=== PATIENT | female | born 1950 | race Caucasian/White ===

== ENCOUNTER 2022-03-09 08:58 | Outpatient (REF) | payer OTHER, SELFPAY ==
[2022-03-09 09:31] LABS: MANUAL DIFF FLAG NO
[2022-03-09 10:00] LABS: Basophils Percent Auto 0.5 % (0-2); Hematocrit 36.4 % (37.0-47.0); Hemoglobin 12.5 g/dl (12.0-16.0); Imm Gran Abs Auto 0.03 X10*3/uL (0.00-0.03); Imm Gran Pct Auto 0.3 % (0.0-0.4); Lymphocytes Absolute Auto 3.3 X10*3/uL (1.2-4.9); Lymphocytes Percent Auto 36.9 % (20-40); Mean Corpuscular HGB Conc 34.3 g/dl (31.0-35.0); Mean Corpuscular Hemoglobin 29.1 pg (27.0-33.0); Mean Corpuscular Volume 84.8 fL (80.0-98.0); Mean Platelet Volume 9.1 fL (9.4-12.3); Monocytes Absolute Auto 0.7 X10*3/uL (0.1-1.2); Monocytes Percent Auto 8.1 % (2-11); Neutrophils Absolute Auto 4.8 x10*3/uL (2.0-8.3); Neutrophils Percent Auto 54.2 % (45-73); Platelet Count 278 X10*3/uL (160-400); Red Blood Count 4.29 X10*6/uL (4.20-5.50); Red Cell Distribution Width 12.8 % (11.0-16.0); White Blood Count 8.9 X10*3/uL (4.8-10.8)
[2022-03-09 10:23] LABS: Alanine Aminotransferase 23 U/L (0-31); Albumin Level 4.3 g/dL (3.5-5.0); Alkaline Phosphatase 81 U/L (39-117); Anion Gap 18 (12-20); Aspartate Amino Transferase 19 U/L (5-31); Bilirubin Total 0.5 mg/dL (0.0-1.0); Blood Urea Nitrogen 19 mg/dL (9-16); Calcium 9.9 mg/dL (8.4-10.2); Carbon Dioxide 24 mmol/L (22-29); Chloride 103 mmol/L (96-108); Cholesterol 164 mg/dL; Estimated Glomerular Filt Rate 47; Glucose Random 196 mg/dL (60-115); HDL Cholesterol 32 mg/dL; LDL Cholesterol Calculated 64 mg/dl; Potassium 4.6 mmol/L (3.3-5.1); Sodium 140 mmol/L (135-145); Triglycerides 342 mg/dL
[2022-03-09 10:33] LABS: Estimated Average Glucose 177 mg/dL; Hemoglobin A1c % 7.8 %
[2022-03-09 10:45] LABS: Thyroid Stimulating Hormone 0.66 uIU/mL (0.32-4.0)
[2022-03-09 11:26] LABS: Creatinine Urine 114.61 mg/dL; Microalbum/Creatinine Ratio Ur 39.2 ug/mg cr
== END 2022-03-09 08:59 | disposition home or self-care (01) ==
LOC: HO.LAB 08:58
PROVIDERS: PCP Internal Medicine; Visit Provider Internal Medicine
DX: Z00.01 Encounter for general adult medical examination with abnormal findings (principal); E11.65 Type 2 diabetes mellitus with hyperglycemia; E78.00 Pure hypercholesterolemia, unspecified; I10 Essential (primary) hypertension
CPT/HCPCS: 36415; 80053; 80061; 82043; 83036; 84443; 85025

== ENCOUNTER 2022-06-12 09:40 | Outpatient (REF) | payer OTHER, SELFPAY ==
[2022-06-12 12:36] LABS: Alanine Aminotransferase 27 U/L (0-31); Albumin Level 4.5 g/dL (3.5-5.0); Alkaline Phosphatase 66 U/L (39-117); Anion Gap 13 (12-20); Aspartate Amino Transferase 22 U/L (5-31); Bilirubin Total 0.6 mg/dL (0.0-1.0); Blood Urea Nitrogen 21 mg/dL (9-16); Calcium 10.1 mg/dL (8.4-10.2); Carbon Dioxide 24 mmol/L (22-29); Chloride 108 mmol/L (96-108); Estimated Glomerular Filt Rate 46; Glucose Random 149 mg/dL (60-115); Potassium 4.4 mmol/L (3.3-5.1); Sodium 141 mmol/L (135-145); Total Protein 6.8 g/dL (6.5-8.0)
[2022-06-13 05:24] LABS: Estimated Average Glucose 151 mg/dL; Hemoglobin A1C 169.2317 umol/L; Hemoglobin A1c % 6.9 %
== END 2022-06-12 09:41 | disposition home or self-care (01) ==
LOC: HO.LAB 09:40
PROVIDERS: PCP Internal Medicine; Visit Provider Internal Medicine
DX: I12.9 Hypertensive chronic kidney disease with stage 1 through stage 4 chronic kidney disease, or unspecified chronic kidney disease (principal); E11.22 Type 2 diabetes mellitus with diabetic chronic kidney disease; N18.9 Chronic kidney disease, unspecified; E11.65 Type 2 diabetes mellitus with hyperglycemia; E78.2 Mixed hyperlipidemia; R80.8 Other proteinuria
CPT/HCPCS: 36415; 80053; 83036

== ENCOUNTER 2022-09-10 10:15 | Outpatient (REF) | payer MEDICARE, SELFPAY ==
[2022-09-10 11:13] LABS: Estimated Average Glucose 154 mg/dL
[2022-09-10 11:44] LABS: Creatinine Urine 77.11 mg/dL
[2022-09-10 11:52] LABS: Alanine Aminotransferase 22 U/L (0-31); Albumin Level 4.3 g/dL (3.5-5.0); Alkaline Phosphatase 70 U/L (39-117); Anion Gap 13 (12-20); Aspartate Amino Transferase 21 U/L (5-31); Bilirubin Total 0.7 mg/dL (0.0-1.0); Blood Urea Nitrogen 20 mg/dL (9-16); Calcium 9.7 mg/dL (8.4-10.2); Carbon Dioxide 25 mmol/L (22-29); Chloride 107 mmol/L (96-108); Cholesterol 165 mg/dL; Estimated Glomerular Filt Rate > 60; Glucose Random 142 mg/dL (60-115); HDL Cholesterol 33 mg/dL; LDL Cholesterol Calculated 89 mg/dl; Potassium 4.7 mmol/L (3.3-5.1); Sodium 140 mmol/L (135-145); Total Protein 6.7 g/dL (6.5-8.0); Triglycerides 219 mg/dL
== END 2022-09-10 10:16 | disposition home or self-care (01) ==
LOC: HO.LAB 10:15
PROVIDERS: PCP Internal Medicine; Visit Provider Internal Medicine
DX: E11.9 Type 2 diabetes mellitus without complications (principal); E78.2 Mixed hyperlipidemia; I10 Essential (primary) hypertension; R80.8 Other proteinuria
CPT/HCPCS: 36415; 80053; 80061; 82043; 83036

== ENCOUNTER 2022-12-17 08:33 | Outpatient (REF) | payer MEDICARE, SELFPAY ==
[2022-12-17 09:12] LABS: Estimated Average Glucose 134 mg/dL; Hemoglobin A1c % 6.3 %
[2022-12-17 09:27] LABS: Alanine Aminotransferase 20 U/L (0-31); Albumin Level 4.2 g/dL (3.5-5.0); Alkaline Phosphatase 71 U/L (39-117); Anion Gap 15 (12-20); Aspartate Amino Transferase 16 U/L (5-31); Bilirubin Total 0.6 mg/dL (0.0-1.0); Blood Urea Nitrogen 26 mg/dL (9-16); Carbon Dioxide 25 mmol/L (22-29); Chloride 105 mmol/L (96-108); Cholesterol 166 mg/dL; Estimated Glomerular Filt Rate 45; Glucose Fasting 135 mg/dL (60-99); HDL Cholesterol 28 mg/dL; LDL Cholesterol Calculated 74 mg/dl; Potassium 4.6 mmol/L (3.3-5.1); Sodium 140 mmol/L (135-145); Total Protein 6.9 g/dL (6.5-8.0); Triglycerides 322 mg/dL
== END 2022-12-17 08:34 | disposition home or self-care (01) ==
LOC: HO.LAB 08:33
PROVIDERS: PCP Internal Medicine; Visit Provider Internal Medicine
DX: E11.9 Type 2 diabetes mellitus without complications (principal); E78.00 Pure hypercholesterolemia, unspecified; I10 Essential (primary) hypertension; Z68.37 Body mass index [BMI] 37.0-37.9, adult
CPT/HCPCS: 36415; 80053; 80061; 83036

== ENCOUNTER 2023-03-18 09:30 | Outpatient (REF) | payer MEDICARE, SELFPAY ==
[2023-03-18 10:39] LABS: Estimated Average Glucose 154 mg/dL
[2023-03-18 11:10] LABS: Alanine Aminotransferase 18 U/L (0-31); Albumin Level 4.3 g/dL (3.5-5.0); Alkaline Phosphatase 73 U/L (39-117); Anion Gap 13 (12-20); Aspartate Amino Transferase 18 U/L (5-31); Bilirubin Total 0.4 mg/dL (0.0-1.0); Blood Urea Nitrogen 26 mg/dL (9-16); Calcium 10.7 mg/dL (8.4-10.2); Carbon Dioxide 26 mmol/L (22-29); Chloride 106 mmol/L (96-108); Estimated Glomerular Filt Rate 47; Glucose Random 139 mg/dL (60-115); Potassium 4.4 mmol/L (3.3-5.1); Sodium 141 mmol/L (135-145); Total Protein 7.3 g/dL (6.5-8.0)
== END 2023-03-18 09:31 | disposition home or self-care (01) ==
LOC: HO.LAB 09:30
PROVIDERS: PCP Internal Medicine; Visit Provider Internal Medicine
DX: E11.9 Type 2 diabetes mellitus without complications (principal); E78.00 Pure hypercholesterolemia, unspecified; I10 Essential (primary) hypertension; R21 Rash and other nonspecific skin eruption
CPT/HCPCS: 36415; 80053; 83036

== ENCOUNTER 2023-06-17 09:38 | Outpatient (REF) | payer MEDICARE, SELFPAY ==
[2023-06-17 10:42] LABS: Alanine Aminotransferase 21 U/L (0-31); Albumin Level 4.3 g/dL (3.5-5.0); Alkaline Phosphatase 82 U/L (39-117); Anion Gap 15 (12-20); Aspartate Amino Transferase 16 U/L (5-31); Bilirubin Total 0.3 mg/dL (0.0-1.0); Blood Urea Nitrogen 33 mg/dL (9-16); Calcium 9.4 mg/dL (8.4-10.2); Carbon Dioxide 24 mmol/L (22-29); Chloride 106 mmol/L (96-108); Cholesterol 162 mg/dL (<200); Estimated Glomerular Filt Rate 43; Glucose Random 148 mg/dL (60-115); HDL Cholesterol 28 mg/dL (>40); LDL Cholesterol Calculated 79 mg/dL (<100); Potassium 3.8 mmol/L (3.3-5.1); Sodium 141 mmol/L (135-145); Total Protein 7.4 g/dL (6.5-8.0); Triglycerides 275 mg/dL (<150)
[2023-06-17 11:02] LABS: Vitamin D 25-OH Total 51.7 ng/mL (>30)
[2023-06-17 11:09] LABS: Estimated Average Glucose 163 mg/dL; Hemoglobin A1c % 7.3 % (<6.0)
[2023-06-17 11:56] LABS: Vitamin B12 < 148 pg/mL (200-900)
[2023-06-17 12:42] LABS: Microalbum/Creatinine Ratio Ur 46.4 ug/mg cr (<30)
== END 2023-06-17 09:39 | disposition home or self-care (01) ==
LOC: HO.LAB 09:38
PROVIDERS: PCP Internal Medicine; Visit Provider Internal Medicine
DX: E11.9 Type 2 diabetes mellitus without complications (principal); E78.00 Pure hypercholesterolemia, unspecified; I10 Essential (primary) hypertension; M54.50 Low back pain, unspecified
CPT/HCPCS: 36415; 80053; 80061; 82043; 82306; 82570; 82607; 83036

== ENCOUNTER 2023-09-17 08:42 | Outpatient (REF) | payer MEDICARE, SELFPAY ==
[2023-09-17 09:32] LABS: Estimated Average Glucose 163 mg/dL; Hemoglobin A1c % 7.3 % (<6.0)
[2023-09-17 09:55] LABS: Alanine Aminotransferase 21 U/L (0-31); Albumin Level 4.3 g/dL (3.5-5.0); Alkaline Phosphatase 75 U/L (39-117); Anion Gap 11 (12-20); Aspartate Amino Transferase 18 U/L (5-31); Bilirubin Total 0.4 mg/dL (0.0-1.0); Blood Urea Nitrogen 28 mg/dL (9-16); Calcium 9.8 mg/dL (8.4-10.2); Carbon Dioxide 26 mmol/L (22-29); Chloride 109 mmol/L (96-108); Cholesterol 132 mg/dL (<200); Estimated Glomerular Filt Rate 49; Glucose Random 187 mg/dL (60-115); HDL Cholesterol 30 mg/dL (>40); LDL Cholesterol Calculated 48 mg/dL (<100); Potassium 4.4 mmol/L (3.3-5.1); Sodium 142 mmol/L (135-145); Total Protein 7.3 g/dL (6.5-8.0); Triglycerides 273 mg/dL (<150)
== END 2023-09-17 08:43 | disposition home or self-care (01) ==
LOC: HO.LAB 08:42
PROVIDERS: PCP Internal Medicine; Visit Provider Internal Medicine
DX: D51.9 Vitamin B12 deficiency anemia, unspecified (principal); E11.65 Type 2 diabetes mellitus with hyperglycemia; E78.00 Pure hypercholesterolemia, unspecified; I10 Essential (primary) hypertension
CPT/HCPCS: 36415; 80053; 80061; 83036

== ENCOUNTER 2023-12-17 08:38 | Outpatient (REF) | payer MEDICARE, SELFPAY ==
[2023-12-17 09:34] LABS: Estimated Average Glucose 160 mg/dL; Hemoglobin A1c % 7.2 % (<6.0)
[2023-12-17 10:03] LABS: Alanine Aminotransferase 20 U/L (0-31); Albumin Level 4.3 g/dL (3.5-5.0); Alkaline Phosphatase 71 U/L (39-117); Anion Gap 12 (12-20); Aspartate Amino Transferase 18 U/L (5-31); Bilirubin Total 0.4 mg/dL (0.0-1.0); Blood Urea Nitrogen 28 mg/dL (9-16); Calcium 10.3 mg/dL (8.4-10.2); Carbon Dioxide 25 mmol/L (22-29); Chloride 107 mmol/L (96-108); Estimated Glomerular Filt Rate 41; Glucose Random 144 mg/dL (60-115); Sodium 140 mmol/L (135-145); Total Protein 7.1 g/dL (6.5-8.0)
== END 2023-12-17 08:39 | disposition home or self-care (01) ==
LOC: HO.LAB 08:38
PROVIDERS: PCP Internal Medicine; Visit Provider Internal Medicine
DX: E11.65 Type 2 diabetes mellitus with hyperglycemia (principal); E78.00 Pure hypercholesterolemia, unspecified; I10 Essential (primary) hypertension; Z68.36 Body mass index [BMI] 36.0-36.9, adult
CPT/HCPCS: 36415; 80053; 83036

== ENCOUNTER 2024-03-17 08:01 | Outpatient (REF) | payer MEDICARE, SELFPAY ==
[2024-03-17 08:54] LABS: Estimated Average Glucose 143 mg/dL; Hemoglobin A1c % 6.6 % (<6.0)
[2024-03-17 09:28] LABS: Parathyroid Hormone Intact 82.4 pg/mL (8.7-77.1)
[2024-03-17 09:31] LABS: Alanine Aminotransferase 20 U/L (0-31); Albumin Level 4.3 g/dL (3.5-5.0); Alkaline Phosphatase 76 U/L (39-117); Anion Gap 13 (12-20); Aspartate Amino Transferase 15 U/L (5-31); Bilirubin Total 0.3 mg/dL (0.0-1.0); Blood Urea Nitrogen 35 mg/dL (9-16); Calcium 9.7 mg/dL (8.4-10.2); Carbon Dioxide 23 mmol/L (22-29); Chloride 107 mmol/L (96-108); Cholesterol 135 mg/dL (<200); Estimated Glomerular Filt Rate 45; Glucose Random 158 mg/dL (60-115); HDL Cholesterol 30 mg/dL (>40); LDL Cholesterol Calculated 38 mg/dL (<100); Phosphorus 3.4 mg/dL (2.7-4.5); Potassium 4.4 mmol/L (3.3-5.1); Sodium 139 mmol/L (135-145); Total Protein 7.1 g/dL (6.5-8.0); Triglycerides 337 mg/dL (<150)
[2024-03-17 10:26] LABS: Creatinine Urine 51.75 mg/dL; Microalbum/Creatinine Ratio Ur 23.1 ug/mg cr (<30)
== END 2024-03-17 08:02 | disposition home or self-care (01) ==
LOC: HO.LAB 08:01
PROVIDERS: PCP Internal Medicine; Visit Provider Internal Medicine
DX: E11.65 Type 2 diabetes mellitus with hyperglycemia (principal); E78.00 Pure hypercholesterolemia, unspecified; E83.52 Hypercalcemia; I12.9 Hypertensive chronic kidney disease with stage 1 through stage 4 chronic kidney disease, or unspecified chronic kidney disease
CPT/HCPCS: 36415; 80053; 80061; 82043; 82306; 82570; 83036; 83970; 84100

== ENCOUNTER 2024-06-16 08:44 | Outpatient (REF) | payer MEDICARE, SELFPAY ==
[2024-06-16 10:10] LABS: Estimated Average Glucose 171 mg/dL; Hemoglobin A1c % 7.6 % (<6.0); Total Hemoglobin (HGBA1C) 3234.2182 umol/L
[2024-06-16 11:15] LABS: Alanine Aminotransferase 19 U/L (0-31); Albumin Level 4.3 g/dL (3.5-5.0); Alkaline Phosphatase 68 U/L (39-117); Anion Gap 16 (12-20); Aspartate Amino Transferase 20 U/L (5-31); Bilirubin Total 0.3 mg/dL (0.0-1.0); Blood Urea Nitrogen 27 mg/dL (9-16); Calcium 9.5 mg/dL (8.4-10.2); Carbon Dioxide 24 mmol/L (22-29); Chloride 107 mmol/L (96-108); Estimated Glomerular Filt Rate 42; Glucose Random 163 mg/dL (60-115); Potassium 4.1 mmol/L (3.3-5.1); Sodium 143 mmol/L (135-145); Total Protein 7.3 g/dL (6.5-8.0)
[2024-06-18 13:13] LABS: HCV RNA PCR Qn <1.18 NOT DETECTED Log IU/mL (NOT DETECTED); HCV RNA PCR Qn <15 NOT DETECTED IU/mL (NOT DETECTED)
== END 2024-06-16 08:45 | disposition home or self-care (01) ==
LOC: HO.LAB 08:44
PROVIDERS: PCP Internal Medicine; Visit Provider Internal Medicine
DX: I12.9 Hypertensive chronic kidney disease with stage 1 through stage 4 chronic kidney disease, or unspecified chronic kidney disease (principal); E11.22 Type 2 diabetes mellitus with diabetic chronic kidney disease; E78.00 Pure hypercholesterolemia, unspecified; Z68.36 Body mass index [BMI] 36.0-36.9, adult; Z18.9 Retained foreign body fragments, unspecified material
CPT/HCPCS: 36415; 80053; 83036; 87522

== ENCOUNTER 2024-09-14 09:09 | Outpatient (REF) | payer MEDICARE, SELFPAY ==
--- OUTSIDE RECORDS SUMMARY | 2024-09-14 09:43 | XMS_ITS ---
[facility] Organization [facility] Address [address] [facility] [place] [address] Care Team Providers Care Pool Table Operator Name Role Phone Fely Antonio Primary Care Provider UnavailBarbara Huerta Unavailable [phone] Allergies No Known Allergies REASON FOR VISIT At Risk Footcare Medications Medication SIG (Take, Route, Frequency, Duration) Notes Start Date End Date Status metFORMIN HCl 500 MG 1 tablet with a efraín l Orally Once a day for 30 day(s) Active Extra Depth Diabetic Shoes with 3 Pair Custom heat-molded multi-density innersoles for 1 year Dx: 02/13/2023 A ctive Atorvastatin Calcium 40 MG 1 tablet Orally Once a day for 30 day(s) Not-Taking Extra Depth Diabetic Shoes with 3 Pair Custom heat-molded multi-density innersoles for 1 year Dx: 04/06/2024 A ctive Voltaren 1 % as directed Externally 04/06/2024 Active Trulicity 1.5 MG/0.5ML as directed Subcutaneous Active Metoprolol Succinate 100 MG 1 capsule Orally Once a day for 30 day(s) Active Losartan Potassium 25 MG 1 tablet Orally Once a day for 30 day(s) Active glipiZIDE ER 10 MG 1 tablet with breakf ast Orally Once a day for 30 day(s) Active amLODIPine Besylate 5 MG 1 tablet Orally Once a day for 30 day(s) Active Rosuvastatin Calcium 20 MG 1 tablet Orally Once a day Active Jardiance 25 MG 1 tablet Orally Once a day for 30 day(s) Active Gabapentin & Diet Manage Prod Active Social History Tobacco Use: Social History Observation Description Date Details (start date - stop date) Former Smoker NA - NA Tobacco Use/Smoking Question Answer Notes Are you a: former smoker Additional Findings: Tobacco Non-User Current no n-smoker Alcohol Screen Question Answer Notes Did you have a drink contain ing alcohol in the past year? Yes How often did you have a dri nk containing alcohol in the past year? Monthly or less (1 point) Points 1 Interpretation Negative Tobacco use other than smoking: Question Answer Notes Are you an other tobacco user? No Problems Problem Type SNOMED Code ICD Code Onset Dates Problem Status W/U Status Risk Notes Problem Polyneuropathy due to diabetes mellitus type I (276165496) Type 1 diabetes mellitus with diabetic polyneuropathy (E10.42) Active confirmed Vital Signs Height 5ft 3in in 07/06/2024 Weight 206 lbs 07/06/2024 BMI 36.49 kg/m2 07/06/2024 Blood pressure systolic 129 mm Hg 07/06/20 24 Blood pressure diastolic 78 mm Hg 024 Procedures Procedure Date Ordered Date Performed Result Body Sit e 33199-TEIQUWF NAIL, 6 OR MORE 07/06/2024 N/A 97906-IZCX SKIN LESIONS, OVER 4 07/06/2024 N/A Encounters Encounter Location Date Provider Diagnosis [facility] [place] [address] [place] [address] 07/06/2024 Barbara Amezquita Type 2 diabetes mellitus with diabetic polyneuropathy E11.42 and Tinea unguium B35.1 Assessments Encounter Date Diagnosis (ICD Code) Assessment Notes Treatment Notes Treatment Clinical Notes Section Notes 07/06/2024 Type 2 diabetes mellitus with diabetic polyneuropathy (ICD-10 - E11.42) 07/06/2024 Tinea unguium (ICD-10 - B35.1) Plan Of Treatment Pending Test Test Name Order Date 80654-QLMKVKF NAIL, 6 OR MORE 07/06/2024 65795-NQTW SKIN LESIONS, OVER 4 07/06/20 24 Next Appt Details Follow Up: 3 Months, Reason: Provider Name:Barbara Burtjose manuel jimmie, 11/05/2024 11:00:00 AM, [address] [place], [address], Procedure Notes * Category Sub-Category Detail Notes Debride Nail 6-10 Nail debridement Due to the cl inical pathology outlined in the exam findings, performance of this nail treatment is medically necessary as its management by an unskilled/untrained nonprofessional would put this patients foot and overall health at risk. Therefore, debridement to affected nail(s), as described in exam ( T1, T2, T3, T4, T5, T6, T7, T8, T9, ), was performed exclusively by the physician of record to reduce/remove overall nail length, girth, thickness, subungual debris, and necrotic tissue, by manual and/or electrical means through the use of a nail nipper and/or dremel-type hob grinder, to a more viable healthy nail plate or bed tissue 6-10 nails in total. Silver nitrate was used for any petechial bleeding as necessary. Definitive antifungal treatment options, both pharmaceutical and surgical, have been reviewed and discussed with the patient. The patient solely prefers the use of intermittent/as needed professional debridement services for their nail condition and understands the need for additional periodic treatments to maintain effectiveness in symptomatic relief - 20906 Keratoma Treatment Parring or Cutting o f Benign Hyperkeratotic Lesion(s) (-57) More than 4 Lesions - Due to the at risk nature of the patients medical condition as documented in the exam findings, performance of this keratoderma treatment is medically necessary as its management by an unskilled/untrained nonprofessional would put this patients foot and overall health at risk. Therefore, the benign hyperkeratotic lesions, ( 5 ) in total, locations as stated and described in the exam ( Medial plantar, IPJ, TA, SUB MTH (s), 1, B/L, Heel(s), B/L, ), were pared, and/or cut utilizing a sterile 15 blade, tissue nippers, and/or power dremel instrumentation by the physician of record - [id number] Progress Notes * Jannette CARRILLODOB: [birth year] (74 yo F)Acc No.[id number]:07/06/2024 Progress Note Patient:?Bartolo CARRILLOidi Provider:?Barbara Amezquita DPM :1950???Age:74 Y???Sex:Female D ate:07/06/2024 Address:[address], [place] , [id number] Pcp:Fely Antonio Subjective: * Chief Complaints: * ???At Risk Footcare * HPI: ???At Risk footcare:?Pt States Last PCP Visit:?Date?06/25/2024 * ROS:?General/Constitutional:?Nausea?denies.?Vomiting?denies.?Hunger Thirst?denies.?Loss appetite?denies.?Chills?denies.?Fatigue?denies.?Fever?denies.?Night Sweats?denies.?Unexplained weight loss?denies.?Unexplained weight gain?denies.?HEENTM:?Dentures?denies.?Dizziness?denies.?Glasses/contacts?denies.?Retinopathy?den ies.?Blurred/double vision?denies.?TMJ?denies.?Discharge/drainage?denies.?Implants?denies.?Sore throat?denies.?Dental implants?denies.?Hard of hearing ?denies.?Difficulty chewing/swallowing/speaking?denies.?Nose bleeds?denies.?Sore mouth?denies.?Respiratory:?On O xygen?denies.?Pneumonia/pleurisy?denies.?Bronchitis?denies.?Emphysema?denies.?Co ughing?denies.?Cough blood?denies.?Shortness of breath?denies.?Wheezing?denies.?Cardiovascular:?Pacemaker?denies.?MVP?denies.?WPW?denies.?CHF?denies.?Heart attack?denies.?Septal defect?denies.?Rapid beat?denies.?Chest pain ?denies.?Atrial Fib.?denies.?Murmur/Palpitations?denies.?Gastrointestinal:?Hemorrhoids?denies.?Stomach/Abdominal pain?denies.?Dark blood stool?denies.?Irritable bowel ?denies.?Constipation?denies.?Diarrhea?denies.?Hematology:?Swelling?denies.?Clots?denies.?Varicose Veins?denies.?Bruising?denies.?Bleeding problem?denies.?Genitourinary:?Blood urine?denies.?Frequent/Painfu/urination/bladder control?denies.?Kidney stones?denies.?Infection (UTI)?denies.?Nephropathy?denies.?sex trans dis (STD)?denies.?Prostate?denies.?Musculoskeletal:?Hammertoes?denies.?Bunions?denies.?Back Pain?denies.?Muscle Cramps/ Resting?denies.?Muscle cramps / walking?denies.?Generalized aches and pains?denies.?Weakness?denies.?Integ.:?Bryant?denies.?Scars?denies.?Corns/calluses?denies.?Ingrown nails?denies.?Painful nails?denies.?Open Sores?denies.?Rashes?denies.?Neurologic:?Difficulty sleeping?denies.?Brain disorder?denies.?Numbness?denies.?Balance t rouble?denies.?Confusion?denies.?Fainting/blackouts?denies.?Tingling?denies.?James mors?denies.? * Medical History:? * Surgical History:?tonsillect sandra 1967jaw surgery 1969appendectomy 1971carpal tunnel surgery 2004 * Hospitalization/Major Diagno stic Procedure:?Denies Past Hospitalization * Family History:?Mother: dece ased.?Father: , cancer, poor circulation, diagnosed with Other malignant neoplasm of unspecified site, Other specified conditions influencing health status.?Siblings: heart attack,stroke, diagnosed with Diabetic - NIDDM, Unspecified essential hypertension, Unspecified heart disease.?Spouse: Cancer, diagnosed with Other malignant neoplasm of unspecified site.? * Social History:?Tobacco Use:?Tobacco Use/Smoking?Are you a:?former smoker ?Additional Findings: Tobacco Non-User?Current non-smoker ?Tobacco use other than smoking?Are you an other tobacco user??No ???Drugs/Alcohol:?Drugs?Have you used drugs other than those for medical reasons in the past 12 months??No ?Alcohol Screen?Did you have a drink containing alcohol in the past year??Yes ?How often did you have a drink containing alcohol in the past year??Monthly or less (1 point) ?Points?1 ?Interpretation?Negative ???Miscellaneous:?Caffeine: yes, frequency: 1-2 cups per day. ?Children: yes, 2. ?Exercise: yes, walking. ?Marital status: . ?Occupation: Retired. * Medications:?TakingGabapenti n & Diet Manage Prod Rosuvastatin Calcium 20 MG Tablet 1 tablet Orally Once a day Jardiance 25 MG Tablet 1 tablet Orally Once a day Trulicity 1.5 MG/0.5ML Solution Pen-injector as directed Subcutaneous Metoprolol Succinate 100 MG Capsule ER 24 Hour Sprinkle 1 capsule Orally Once a day Losartan Potassium 25 MG Tablet 1 tablet Orally Once a day glipiZIDE ER 10 MG Tablet Extended Release 24 Hour 1 tablet with breakfast Orally Once a day amLODIPine Besylate 5 MG Tablet 1 tablet Orally Once a day metFORMIN HCl 500 MG Tablet 1 tablet with a meal Orally Once a day Extra Depth Diabetic Shoes with 3 Pair Custom heat-molded multi-density innersoles for 1 year Dx: Extra Depth Diabetic Shoes with 3 Pair Custom heat-molded multi-density innersoles for 1 year Dx: Voltaren 1 % Gel as directed Externally Taking Gabapentin & Diet Manage Prod Taking Rosuvastatin Calcium 20 MG Tablet 1 tablet Orally Once a day Taking Jardiance 25 MG Tablet 1 tablet Orally Once a day Taking Trulicity 1.5 MG/0.5ML Solution Pen-injector as directed Subcutaneous Taking Metoprolol Succinate 100 MG Capsule ER 24 Hour Sprinkle 1 capsule Orally Once a day Taking Losartan Potassium 25 MG Tablet 1 tablet Orally Once a day Taking glipiZIDE ER 10 MG Tablet Extended Release 24 Hour 1 tablet with breakfast Orally Once a day Taking amLODIPine Besylate 5 MG Tablet 1 tablet Orally Once a day Taking metFORMIN HCl 500 MG Tablet 1 tablet with a meal Orally Once a day Taking Extra Depth Diabetic Shoes with 3 Pair Custom heat-molded multi-density innersoles for 1 year Dx: Taking Extra Depth Diabetic Shoes with 3 Pair Custom heat-molded multi-density innersoles for 1 year Dx: Taking Voltaren 1 % Gel as directed Externally Not-Taking/PRNAtorvastatin Calcium 40 MG Tablet 1 tablet Orally Once a day Medication List reviewed and reconciled with the patientNot-Taking/PRN Atorvastatin Calcium 40 MG Tablet 1 tablet Orally Once a day Medication List reviewed and reconciled with the patient * Allergies:?N.K.D.A.yes[Aller gies Verified] Objective: * Vitals:?Ht: 5ft 3in, Wt:206, BMI:36.49, Shoe size: 8, BP:129/78mm Hg, BS: 136, Ht-cm: 160.02 cm, Wt-k.44 kg. * ???Past Orders: ???Lab:HEMOGLOBIN A1C (GLYCO HEMOGLOBIN) (Order Date - 06/07/2024) (Collection Date & Time - 06/07/2024 02:01 PM) ? Value Reference Range ?TOTAL HEMOGLOBIN (HGBA1C) 7.3 * Examination: ???Ophthalmology Referral: ?DIABETES EYE EXAM?Procedure Performed:?Yes ?Date of Exam Performed?04/07/2024 ?Findings of Diabetic Eye Exam:?no retinopathy?Neurological: ?SENSORY:? Neurological exam demonstrates, reduced light touch sensation, reduced sharp/dull pin prick discrimination , B/L, 5.07 monofilament test performed at plantar aspects of 5 varied sites per foot shows sensation, reduced , B/L.?Nails: ?NAILS are:?Elongated, overgrown, dystrophic, lytic, greater than 3mm thick, discolored and friable with crumbly malodorous subungual debris, with dull to no pain on palpation due to neuropathy, T1, T2, T3, T4, T5, T6, T7, T8, T9.?Dermatologic: ?SKIN FINDINGS:?Skin exam reveals Keratotic lesion(s) located at?Medial plantar, IPJ, TA, T5, SUB MTH (s), 1, B/L, Heel(s), B/L,?.?Vascular: ?DP PULSES (B):?1/4, B/L.?PT PULSES (B):? 0/4, B/L.?CAPILLARY FILL TIME:?3 secs. per digit, B/L.?TROPHIC CONDITION-TEXTURE/ELASTICITY/TURGOR/HAIR GROWTH (B):?normal, B/L.?TEMPERTURE GRADIENT (C):?warm to cool, proximal to distal, B/L.?PIGMENTATION:?normal, B/L.?EDEMA (C):?no edema.?TELANGECTASIA:?absent.?VARICOSITIES:?absent.?Orthopedic: ?MUSCLE STRENGTH:?5/5 all groups in a symmetrical fashion, B/L.?General Examination: ?GENERAL APPEARANCE:?Reveals a pleasant, alert, well nourished, well- developed, well hydrated individual, who demonstrates proper attention to hygiene/body habitus, and is in no acute distress, Pt serves as own historian for office visit today.?ORIENTED:?person, place, and time.? Assessment: * Assessment: 1.?Type 2 diabetes mellitus with diabetic polyneuropathy - E11.42 (Primary)???2.?Tinea unguium - B35.1??? Plan: * Treatment: * Procedures:?Debride Nail 6-10:?Nail debridement?Due to the clinical pathology outlined in the exam findings, performance of this nail treatment is medically necessary as its management by an unskilled/untrained nonprofessional would put this patients foot and overall health at risk. Therefore, debridement to affected nail(s), as described in exam ( T1, T2, T3, T4, T5, T6, T7, T8, T9, ), was performed exclusively by the physician of record to reduce/remove overall nail length, girth, thickness, subungual debris, and necrotic tissue, by manual and/or electrical means through the use of a nail nipper and/or dremel-type hob grinder, to a more viable healthy nail plate or bed tissue 6- 10 nails in total. Silver nitrate was used for any petechial bleeding as necessary. Definitive antifungal treatment options, both pharmaceutical and surgical, have been reviewed and discussed with the patient. The patient solely prefers the use of intermittent/as needed professional debridement services for their nail condition and understands the need for additional periodic treatments to maintain effectiveness in symptomatic relief - 53459.?Keratoma Treatment:?Parring or Cutting of Benign Hyperkeratotic Lesion(s)?(-57) More than 4 Lesions - Due to the at risk nature of the patients medical condition as documented in the exam findings, performance of this keratoderma treatment is medically necessary as its management by an unskilled/untrained nonprofessional would put this patients foot and overall health at risk. Therefore, the benign hyperkeratotic lesions, ( 5 ) in total, locations as stated and described in the exam ( ?Medial plantar, IPJ, TA,? SUB MTH (s), 1, B/L, Heel(s), B/L,? ), were pared, and/or cut utilizing a sterile 15 blade, tissue nippers, and/or power dremel instrumentation by the physician of record - 53169.? * Procedure Codes:?47498 DEBRI DE NAIL, 6 OR MORE, Modifiers: XS 96967 TRIM SKIN LESIONS, OVER 4, Modifiers: XS * Follow Up:?3 Months * Images: * Sign off status: Completed true * Provider:?Barbara Amezquita DPM Date:? Generated for Christai musa/Lane/eTransmitting on:?09/14/2024 09:43 AM EDT History and Physical Notes * HPI (History of Present Illness) Category Sub-Category Detail Notes Category Not es At Risk footcare Pt States Last PCP Visit: Date: Examination Category Sub-Category Detail Notes Category Not es Neurological SENSORY: Neurological exa m demonstrates, reduced light touch sensation, reduced sharp/dull pin prick discrimination , B/L, 5.07 monofilament test performed at plantar aspects of 5 varied sites per foot shows sensation, reduced , B/L Dermatologic SKIN FINDINGS: Skin exam reveal s Keratotic lesion(s) located at Medial plantar, IPJ, TA, T5, SUB MTH (s), 1, B/L, Heel(s), B/L, Orthopedic MUSCLE STRENGTH: 5/5 all groups in a symmetrical fashion, B/L General Examination GENERAL APPEARANCE: Reveals a pleasant, alert, well nourished, well-developed, well hydrated individual, who demonstrates proper attention to hygiene/body habitus, and is in no acute distress, Pt serves as own historian for office visit today ORIENTED: person, place, and t laurie Ophthalmology Referral DIABETES EYE EXAM Procedure Perform ed:: Yes ?Date of Exam Performed: 04/07/2024 Findings of Diabetic Eye Exam:: no retin opathy Vascular DP PULSES (B): 1/4, B/L PT PULSES (B): 0/4, B/L CAPILLARY FILL TIME: 3 secs. per digit, B/L TEMPERTURE GRADIENT (C): warm to cool, p roximal to distal, B/L TROPHIC CONDITION-TEXTURE/ELASTICITY/TURGOR/HAIR GROWTH (B): normal, B/L EDEMA (C): no edema TELANGECTASIA: absent VARICOSITIES: absent PIGMENTATION: normal, B/L Nails NAILS are: Elongated, overg rown, dystrophic, lytic, greater than 3mm thick, discolored and friable with crumbly malodorous subungual debris, with dull to no pain on palpation due to neuropathy, T1, T2, T3, T4, T5, T6, T7, T8, T9
--- OUTSIDE RECORDS SUMMARY | 2024-09-14 09:43 | XMS_ITS ---
[facility] Address [address] Stephane Rogers [place] [address] Care Team Providers Care Computational Biologist Name Role Phone Paco Fely Primary Care Provider Unavailab Barbara Burch Unavailable [phone] Luca Coffman Unavailable [phone] Allergies No Known Allergies REASON FOR VISIT Ingrown nail(s) Medications Medication SIG (Take, Route, Frequency, Duration) Notes Start Date End Date Status Atorvastatin Calcium 40 MG 1 tablet Orally Once a day for 30 day(s) Not-Taking Extra Depth Diabetic Shoes with 3 Pair Custom heat-molded multi-density innersoles for 1 year Dx: 02/13/2023 A ctive metFORMIN HCl 500 MG 1 tablet with a efraín l Orally Once a day for 30 day(s) Active amLODIPine Besylate 5 MG 1 tablet Orally Once a day for 30 day(s) Active glipiZIDE ER 10 MG 1 tablet with breakf ast Orally Once a day for 30 day(s) Active Rosuvastatin Calcium 20 MG 1 tablet Orally Once a day Active Losartan Potassium 25 MG 1 tablet Orally Once a day for 30 day(s) Active Metoprolol Succinate 100 MG 1 capsule Orally Once a day for 30 day(s) Active Trulicity 1.5 MG/0.5ML as directed Subcutaneous Active Jardiance 25 MG 1 tablet Orally Once a day for 30 day(s) Active Social History Tobacco Use: Social History Observation Description Date Details (start date - stop date) Former Smoker NA - NA Tobacco Use/Smoking Question Answer Notes Are you a: former smoker Additional Findings: Tobacco Non-User Current no n-smoker Tobacco use other than smoking: Question Answer Notes Are you an other tobacco user? No Vital Signs Height 5ft3in in 03/11/2024 Weight 206 lbs 03/11/2024 BMI 36.49 kg/m2 03/11/2024 Encounters Encounter Location Date Provider Diagnosis [facility] [address] [place] [address] 03/11/2024 Luca Coffman Type 2 diabetes mellitus with diabetic polyneuropathy E11.42 ; Pain in left foot M79.672 ; Pain in right foot M79.671 ; Metatarsalgia, left foot M77.42 ; Metatarsalgia, right foot M77.41 ; Hallux valgus (acquired), left foot M20.12 ; Hallux valgus (acquired), right foot M20.11 ; Other hammer toe(s) (acquired), left foot M20.42 ; Other hammer toe(s) (acquired), right foot M20.41 ; Tinea unguium B35.1 ; Pain in right toe(s) M79.674 ; Pain in left toe(s) M79.675 ; Primary osteoarthritis, left ankle and foot M19.072 ; Primary osteoarthritis, right ankle and foot M19.071 and Ingrowing nail L60.0 Assessments Encounter Date Diagnosis (ICD Code) Assessment Notes Treatment Notes Treatment Clinical Notes Section Notes 03/11/2024 Type 2 diabetes mellitus with diabetic polyneuropathy (ICD-10 - E11.42) 03/11/2024 Pain in left foot (ICD-10 - M79.672) 03/11/2024 Pain in right foot (ICD-10 - M79.671) 03/11/2024 Metatarsalgia, left foot (ICD-10 - M77.42) 03/11/2024 Metatarsalgia, right foot (ICD-10 - M77.41) 03/11/2024 Hallux valgus (acquired), left foot (ICD-10 - M20.12) 03/11/2024 Hallux valgus (acquired), right foot (ICD-10 - M20.11) 03/11/2024 Other hammer toe(s) (acquired), left foot (ICD-10 - M20.42) 03/11/2024 Other hammer toe(s) (acquired), right foot (ICD-10 - M20.41) 03/11/2024 Tinea unguium (ICD-10 - B35.1) 03/11/2024 Pain in right toe(s) (ICD-10 - M79.674) 03/11/2024 Pain in left toe(s) (ICD-10 - M79.675) 03/11/2024 Primary osteoarthritis, left ankle and foot (ICD-10 - M19.072) 03/11/2024 Primary osteoarthritis, right ankle and foot (ICD-10 - M19.071) 03/11/2024 Ingrowing nail (ICD-10 - L60.0) Plan Of Treatment Next Appt Details Follow Up: 3 Months, Reason: Provider Name:Barbara Burtjose manuel samuel, 11/05/2024 11:00:00 AM, [address] [place] [address], [id number], Procedure Notes * Category Sub-Category Detail Notes Nail Avulsion Procedure A fine sterile e levator was used to loosen the eponychium, nail bed, nail plate and groove. A sterile nail splitter was then used to longitudinally section the nail. This section was removed. No underlying bone was identified. Procedure was performed under. Bacitracin and sterile dressings applied, local wound care instructions were dispensed. Patient was informed of both conservative and future surgical procedures to prevent recurrence Anesthesia was deferred - NEURO NOLA: patient has medically documented neuropathic condition affecting sensation Location Lateral nail border, T5 Keratoma Treatment Parring or Cutting o f Benign Hyperkeratotic Lesion(s) 53518 ( More than 4 Lesions ) - The Benign hyperkeratotic lesions, as described above were pared, and/or cut utilizing a sterile 15 blade, tissue nippers, and/or dremel Progress Notes * Jannette CARRILLODOB: [birth year] (73 yo F)Acc No.[id number]:03/11/2024 Progress Note Patient:?Jannette Carrillo Provider:?Luca Coffman DPM :1950???Age:73 Y???Sex:Female D ate:03/11/2024 Address:[address], [place] , [id number] Pcp:Fely Antonio Subjective: * Chief Complaints: * ???Ingrown nail(s) * HPI: ???At Risk footcare:?Pt States Last PCP Visit:?Date?09/06/2023 ???Foot Pain:?Nature:?aching, burning.?Location?Bottom, Forefoot, B/L.?Duration:?several years.?Onset/Cause:?unknown, denies trauma.?Course:?worse.?Aggrevated:?any pressure, standing, walking, barefoot walking.?Treatments:?rest, alphaplex did not help.?Quality/Severity?9, scale 1-10 in barefeet.?Skin problems:?Nature:?itching, redness.?Location:?Inside, Ankle, B/L .?Duration:?several months.?Course:?worse.?Treatments:?seeing Derm in 2 weeks.?Toe pain:?Nature:?tingling, pins.?Location:?B/L feet--left is worse.?Duration:?several weeks.?Course:?worse , progressive.?Treatments:?motion helps.?Severity/Quality:?mild , moderate.? * ROS:?General/Constitutional:?Nausea?denies, denies.?Vomiting?denies, denies.?Hunger Thirst?denies, denies.?Loss appetite?denies, denies.?Chills?denies, denies.?Fatigue?denies, denies.?Fever?denies, denies.?Night Sweats denies, denies.?Unexplained weight loss?denies, denies.?Unexplained weight gain?denies.?Ophthalmologic:?Blurred vision?denies.?Red eye?denies.?HEENTM:?Dentures?admits, denies.?Dizziness?denies, denies.?Glasses/contacts?admits, denies.?Retinopathy?denies, denies.?Blurred/double vision?denies, denies.?TMJ?denies, denies.?Discharge/drainage?denies, denies.?Implants?denies, denies.?Sore throat?denies.?Dental implants?denies.?Hard of hearing ?denies, denies.?Difficulty chewing/swallowing/speaking?denies, denies.?Nose bleeds?denies, denies.?Sore mouth?denies, denies.?Swollen glands?denies.?Respiratory:?On Oxygen?denies, denies.?Pneumonia/pleurisy?denies, denies.?Bronchitis?denies, denies.?Emphysema?denies, denies.?Coughing?denies, denies.?Cough blood?denies, denies.?Shortness of breath?denies, denies.?Wheezing?denies, denies.?Cardiovascular:?Pacemaker?denies, denies.?MVP?denies, denies.?WPW?denies, denies.?CHF?denies, denies.?Heart attack?denies, denies.?Septal defect?denies, denies.?Rapid beat?denies, denies.?Chest pain ?denies, denies.?Atrial Fib.?denies, denies.?Murmur/Palpitations?denies, denies.?Gastrointestinal:?Hemorrhoids?admits, denies.?Stomach/Abdominal pain?denies, denies.?Dark blood stool?denies, denies.?Irritable bowel ?denies, denies.?Constipation?denies, denies.?Diarrhea?denies, denies.?Vomiting?denies.?Hematology:?Swelling?denies, denies.?Clots?denies.?Varicose Veins?denies.?Bruising?denies, denies.?Bleeding problem?denies, denies.?Genitourinary:?Blood urine?denies, denies.?Frequent/Painfu/urination/bladder control?denies, denies.?Kidney stones?denies, denies.?Infection (UTI)?denies, denies.?Nephropathy?denies, denies.?sex trans dis (STD)?denies.?Prostate?denies.?Musculoskeletal:?Hammertoes?denies, denies.?Bunions?admits, denies.?Scoliosis/kyphosis?denies.?Back Pain?admits.?Muscle Cramps/ Resting?admits.?Muscle cramps / walking?denies, denies.?Generalized aches and pains?denies, denies.?Weakness?denies, denies.?Integ.:?Bryant?denies, denies.?Scars?denies, denies.?Corns/calluses?admits, denies.?Ingrown nails?denies, denies.?Painful nails?denies, denies.?Open Sores?denies.?Rashes?denies, denies.?Neurologic:?Difficulty sleeping?denies, denies.?Bipolar?denies.?Brain disorder?denies, denies.?Numbness?admits.?Balance trouble?denies, denies.?Confusion?denies, denies.?Fainting/blackouts?denies, denies.?Headache?denies.?Tingling?denies.?Tremors?denies, denies.? * Medical History:? * Surgical History:?tonsillect sandra 1967jaw surgery 1969appendectomy 1971carpal tunnel surgery 2004 * Hospitalization/Major Diagno stic Procedure:?Denies Past Hospitalization * Family History:?Mother: dece ased.?Father: , cancer, poor circulation, diagnosed with Other specified conditions influencing health status, Other malignant neoplasm of unspecified site.?Siblings: heart attack,stroke, diagnosed with Diabetic - NIDDM, Unspecified essential hypertension, Unspecified heart disease.?Spouse: Cancer, diagnosed with Other malignant neoplasm of unspecified site.? * Social History:?Tobacco Use:?Tobacco Use/Smoking?Are you a:?former smoker ?Additional Findings: Tobacco Non-User?Current non-smoker ?Tobacco use other than smoking?Are you an other tobacco user??No ???Miscellaneous:?Caffeine: yes, frequency: 1-2 cups per day. ?Children: yes, 2. ?Exercise: yes, walking. ?Marital status: . ?Occupation: Retired. * Medications:?TakingRosuvasta tin Calcium 20 MG Tablet 1 tablet Orally Once a dayJardiance 25 MG Tablet 1 tablet Orally Once a dayTrulicity 1.5 MG/0.5ML Solution Pen-injector as directed Subcutaneous Metoprolol Succinate 100 MG Capsule ER 24 Hour Sprinkle 1 capsule Orally Once a dayLosartan Potassium 25 MG Tablet 1 tablet Orally Once a dayglipiZIDE ER 10 MG Tablet Extended Release 24 Hour 1 tablet with breakfast Orally Once a dayamLODIPine Besylate 5 MG Tablet 1 tablet Orally Once a daymetFORMIN HCl 500 MG Tablet 1 tablet with a meal Orally Once a dayExtra Depth Diabetic Shoes with 3 Pair Custom heat-molded multi-density innersoles for 1 year Dx:Taking Rosuvastatin Calcium 20 MG Tablet 1 tablet Orally Once a dayTaking Jardiance 25 MG Tablet 1 tablet Orally Once a dayTaking Trulicity 1.5 MG/0.5ML Solution Pen- injector as directed Subcutaneous Taking Metoprolol Succinate 100 MG Capsule ER 24 Hour Sprinkle 1 capsule Orally Once a dayTaking Losartan Potassium 25 MG Tablet 1 tablet Orally Once a dayTaking glipiZIDE ER 10 MG Tablet Extended Release 24 Hour 1 tablet with breakfast Orally Once a dayTaking amLODIPine Besylate 5 MG Tablet 1 tablet Orally Once a dayTaking metFORMIN HCl 500 MG Tablet 1 tablet with a meal Orally Once a dayTaking Extra Depth Diabetic Shoes with 3 Pair Custom heat-molded multi- density innersoles for 1 year Dx:Not-Taking/PRNAtorvastatin Calcium 40 MG Tablet 1 tablet Orally Once a dayMedication List reviewed and reconciled with the patientNot-Taking/PRN Atorvastatin Calcium 40 MG Tablet 1 tablet Orally Once a dayMedication List reviewed and reconciled with the patient * Allergies:?N.K.D.A.yes[Aller gies Verified] Objective: * Vitals:?Ht: 5ft3in, Wt:206, BMI:36.49, Shoe size: 8, BS: 137, Ht-cm: 160.02 cm, Wt-k.44 kg. * ???Past Orders: ???Lab:HEMOGLOBIN A1C (GLYCO HEMOGLOBIN) (Order Date - 09/06/2023) (Collection Date - 09/06/2023) ? Value Reference Range ?HEMOGLOBIN A1C (HH) 7.2 * Examination: ???Ophthalmology Referral: ?DIABETES EYE EXAM?Diabetic Retinopathy Screening:?Yes 04/2023 ?Findings of Diabetic Eye Exam:?no retinopathy?Neurological: ?SENSORY:?Neurological exam demonstrates , reduced vibration sensation , 5.07 monofilament test performed at plantar aspects of 5 varied sites per foot shows sensation , reduced , B/L.?TINEL'S COMPRESSION:?Negative tarsal tunnel, nelida pedis, and medial calcaneal nerves B/L.?BABINSKI REFLEX:?absent.?Vascular: ?DP PULSES:? 0/4, B/L.?PT PULSES:? 0/4, B/L.?CAPILLARY FILL TIME:?3 secs. per digit, B/L.?SKIN TEMPERTURE GRADIENT OF THE LOWER EXTERMITIES:?warm to cool, proximal to distal, B/L.?HAIR GROWTH/TEXTURE/ELASTICITY/TURGOR:?normal, B/L.?PIGMENTATION:?normal, B/L.?EDEMA:?no edema.?TELANGECTASIA:?absent.?VARICOSITIES:?absent.?Nails: ?NAILS are:? Elongated, overgrown, dystrophic, lytic, greater than 3mm thick, discolored and friable with crumbly malodorous subungual debris, with dull to no pain on palpation due to neuropathy, 1-5 B/L.?Dermatologic: ?SKIN FINDINGS:? Skin exam reveals Keratotic lesion(s) located at, Medial plantar, IPJ, TA, T5, SUB MTH (s), 1, B/L, Heel(s), B/L, Skin shows sign(s) of dermatitis tra feet.?General Examination: ?GENERAL APPEARANCE:?pleasant, alert, well nourished, well developed, well hydrated, with good attention to hygene/body habitus, and in no acute distress.?ORIENTED:?person,place, and time.?FOOT EXAM:?Lower Extremity Neurological Exam performed:?Yes ?Visual exam of foot performed:?Yes ?Date?03/11/2024 ?Sensory testing performed:?sensations diminished ?Pedal pulse taking performed:?absent?Neuroma Pain: ?PALPATION:?No interspace pain noted on palpation.?Orthopedic: ?MUSCLE STRENGTH:?5/5 all groups in a symmetrical fashion , B/L.?GAIT ABNORMALITY:?pronated, abducted, B/L.?BUNION:? Medially prominent 1st MPJ, Dorsally prominent 1st MPJ, B/L, Lateral tracking 1st MPJ incompletely reducible.?DIGITAL DEFORMITIES:? Digital contracture, PIPJ, 2-5 B/L, incompl- reducible with WB, or to push-up test, no over, nor underlapping.?Ingrown Nail: ?INSPECTION:? Reveals nail incurvation, dull pain on palpation due to neuropathy, groove hypertrophy, , Bilateral nail borders, T5.? Assessment: * Assessment: 1.?Type 2 diabetes mellitus with diabetic polyneuropathy - E11.42?2.?Pain in left foot - M79.672?3.?Pain in right foot - M79.671?4.?Metatarsalgia, left foot - M77.42?5.?Metatarsalgia, right foot - M77.41?6.?Hallux valgus (acquired), left foot - M20.12?7.?Hallux valgus (acquired), right foot - M20.11?8.?Other hammer toe(s) (acquired), left foot - M20.42?9.?Other hammer toe(s) (acquired), right foot - M20.41?10.?Tinea unguium - B35.1 (Primary)?11.?Pain in right toe(s) - M79.674?12.?Pain in left toe(s) - M79.675?13.?Primary osteoarthritis, left ankle and foot - M19.072?14.?Primary osteoarthritis, right ankle and foot - M19.071?15.?Ingrowing nail - L60.0? Plan: * Treatment: * Procedures:?Keratoma Treatment:?Parring or Cutting of Benign Hyperkeratotic Lesion(s)?86601 ( More than 4 Lesions ) - The Benign hyperkeratotic lesions, as described above were pared, and/or cut utilizing a sterile 15 blade, tissue nippers, and/or dremel.?Nail Avulsion:?Location?Lateral nail border, T5.?Anesthesia?was deferred - NEUROPATHY: patient has medically documented neuropathic condition affecting sensation.?Procedure?A fine sterile elevator was used to loosen the eponychium, nail bed, nail plate and groove. A sterile nail splitter was then used to longitudinally section the nail. This section was removed. No underlying bone was identified. Procedure was performed under. Bacitracin and sterile dressings applied, local wound care instructions were dispensed. Patient was informed of both conservative and future surgical procedures to prevent recurrence.? * Procedure Codes:?10882 Avuls ion Plate, Modifiers: T5 66717 TRIM SKIN LESIONS, OVER 4, Modifiers: XS * Preventive Medicine:? ??Counseling:?Discussion:?-13: Office or other outpatient visit for the evaluation and management of an established patient, which required a medically appropriate history and/or examination and LOW level of DECISION MAKING for: 1 STABLE ACUTE UNCOMPLICATED PROBLEM, 2 OR MORE MINOR PROBLEMS, OR 1 STABLE CHRONIC PROBLEM, THAT POSE(S) A LOW RISK FOR MORBIDITY/MORTALITY. The visit on the day of the encounter encompassed interpreting the data and educating the patient as to the nature of their condition, treatment options available according to their individual PMH, meds, allergies, and overall health/living conditions, as well as any potential risks or complications that may occur from a failure to adhere to, and participate in, the recommended course of therapy. The discussion included a complete verbal, and/or written explanation of the examination results, any x-rays taken, the proposed diagnosis, and outline of the treatment plan. A schedule for future care needs was also explained. The patient verbalized an understanding of the instructions at this time and agreed to be an active participant in their treatment. If the patient should think of any questions or concerns after the visit, I have encouraged the patient to call the office--pt to bring in dm shoes next time for xrays and plan use of orthoses.?Metatarsalgea:?I explained to the patient the possible etiologies of their Metatarsalgea Foot pain, including foot type/shoegear/activity level/exercise routine and the risks/benefits of all the different treatment options for pain including: No treatment at all, Rest, Ice, NSAIDs(only if well tolerated after meals), New/supportive Shoegear, Strappings and Tapings, Foot/Ankle AFO Bracing, Stretching exercises, Deep Tissue Massage, Arch support/shoe inserts, Custom orthoses, Topical analgesics including Aspercream/Voltaren gel, Physical Therapy, Cortisone injection therapy, EPAT/ESWT. Advantages and disadvantages of each option were discussed and the patients questions re: shoegear, custom vs prefabricated inserts, activity level, PO vs Topical medications (and their respective potential complications/drug interactions/side effects), and consistency in home treatment regimens for optimal success were answered to their verbally confirmed satisfaction.? * Follow Up:?3 Months * Images: * Sign off status: Completed true * Provider:?Luca Coffman DPM Date:? 024 Generated for Annie vigil/Lane/Teresa on:?09/14/2024 09:43 AM EDT History and Physical Notes * HPI (History of Present Illness) Category Sub-Category Detail Notes Category Not es Toe pain Nature: tingling, pins Location: B/L feet--left is wo rse Duration: several weeks Course: worse , progressive Treatments: motion helps Severity/Quality: mild , moderate Skin problems Nature: itching, redness Location: Inside, Ankle, B/L Duration: several months Course: worse Treatments: seeing Derm in 2 wee ks At Risk footcare Pt States Last PCP Visit: Date: 4 Foot Pain Aggrevated: any pressure, st anding, walking, barefoot walking Onset/Cause: unknown, denies trau ma Course: worse Duration: several years Nature: aching, burning Treatments: rest, alphaplex did not help Quality/Severity 9, scale 1-10 in bar efeet Location Bottom, Forefoot, B/ L Examination Category Sub-Category Detail Notes Category Not es Ingrown Nail INSPECTION: Reveals nail inc urvation, dull pain on palpation due to neuropathy, groove hypertrophy, , Bilateral nail borders, T5 Neuroma Pain PALPATION: No interspace pain noted on palpation Neurological SENSORY: Neurological exa m demonstrates , reduced vibration sensation , 5.07 monofilament test performed at plantar aspects of 5 varied sites per foot shows sensation , reduced , B/L BABINSKI REFLEX: absent TINEL'S COMPRESSION: Negative tarsal sowmya parker, nelida pedis, and medial calcaneal nerves B/L Dermatologic SKIN FINDINGS: Skin exam reveal s Keratotic lesion(s) located at, Medial plantar, IPJ, TA, T5, SUB MTH (s), 1, B/L, Heel(s), B/L, Skin shows sign(s) of dermatitis tra feet Orthopedic GAIT ABNORMALITY: pronated, abducted, B/L BUNION: Medially prominent 1 st MPJ, Dorsally prominent 1st MPJ, B/L, Lateral tracking 1st MPJ incompletely reducible DIGITAL DEFORMITIES: Digital contracture , PIPJ, 2-5 B/L, incompl-reducible with WB, or to push-up test, no over, nor underlapping MUSCLE STRENGTH: 5/5 all groups in a symmetrical fashion , B/L General Examination GENERAL APPEARANCE: pleasant , alert, well nourished, well developed, well hydrated, with good attention to hygene/body habitus, and in no acute distress FOOT EXAM: Lower Extremity Neurological Exa m performed:: Yes Visual exam of foot performed:: Yes Date: 03/11/2024 Sensory testing performed:: sensations d iminished Pedal pulse taking performed:: absent ORIENTED: person,place, and ti me Ophthalmology Referral DIABETES EYE EXAM Diabeti c Retinopathy Screening:: Yes 04/2023 Findings of Diabetic Eye Exam:: no retin opathy Vascular DP PULSES (B): 0/4, B/L PT PULSES (B): 0/4, B/L CAPILLARY [...] no pain on palpation due to neuropathy, 1-5 B/L
--- OUTSIDE RECORDS SUMMARY | 2024-09-14 09:44 | XMS_ITS | Clinical Summary ---
Author Organization [facility] ity Address [address] [place] [address] Care Team Providers Care Machine Setter Supervisor Name Role Phone Unavailable Primary Care Provider Unavailabl e Social History Tobacco Use Types Packs/Day Years Used Date Smoking Tobacco: Never Assessed Comments Unknown Sex and Gender Information Value Date Recorded Sex Assigned at Not on file Legal Sex Female 10:20 AM EST Gender Identity Not on file Sexual Orientation Not on file Plan of Treatment Health Maintenance Due Date Last Done Comments Breast Cancer Screening 1950 DTaP,Tdap,and Td Vaccines (1 - Tdap) 1969 Pneumococcal Vaccine: 50+ Ye ars (1 of 1 - PCV) 2000 Zoster Vaccines (1 of 2) 2000 COVID-19 Vaccine ( - 2023-2 5 season) 2024 Influenza Vaccine (#1) 2024 RSV Immunization Patients 60 + Years Old (1 - 1-dose 75+ series) 2025 HIB Vaccines Aged Out No longer eligi ble based on patient's age to complete this topic HPV Vaccines Aged Out No longer eligi ble based on patient's age to complete this topic Hepatitis A Vaccines Aged Out No long er eligible based on patient's age to complete this topic Hepatitis B Vaccines Aged Out No long er eligible based on patient's age to complete this topic IPV Vaccines Aged Out No longer eligi ble based on patient's age to complete this topic MMR Vaccines Aged Out No longer eligi ble based on patient's age to complete this topic Meningococcal ACWY Vaccine Aged Out N o longer eligible based on patient's age to complete this topic Meningococcal B Vacine Aged Out No lo nger eligible based on patient's age to complete this topic RSV Immunization Patients Un amish 20 months Aged Out No longer eligible b ased on patient's age to complete this topic Varicella Vaccines Aged Out No longer eligible based on patient's age to complete this topic
--- OUTSIDE RECORDS SUMMARY | 2024-09-14 09:44 | XMS_ITS | Patient Health Record ---
[facility] Organization [facility] Address [address] [place] [address] Care Team Providers Care Legal Recruiter Name Role Phone Paco Fely Primary Care Provider Unavailab Barbara Burch Unavailable [phone] Luca Coffman Unavailable [phone] Allergies No Known Allergies Results Component Value Reference Range Notes HEMOGLOBIN A1C (GLYCOHEMOGLO BIN) Reviewed date:04/06/2024 12:08:14 PM Interpretation: Performing Lab: Notes/Report: TOTAL HEMOGLOBIN (HGBA1C) 6.7 HEMOGLOBIN A1C (GLYCOHEMOGLO BIN) Reviewed date:07/06/2024 02:02:21 PM Interpretation: Performing Lab: Notes/Report: TOTAL HEMOGLOBIN (HGBA1C) 7.3 Reason For Referral No Information Medications Medication SIG (Take, Route, Frequency, Duration) Notes Start Date End Date Status Losartan Potassium 25 MG 1 tablet Orally Once a day for 30 day(s) Active metFORMIN HCl 500 MG 1 tablet with a efraín l Orally Once a day for 30 day(s) Active Extra Depth Diabetic Shoes with 3 Pair Custom heat-molded multi-density innersoles for 1 year Dx: 02/13/2023 A ctive glipiZIDE ER 10 MG 1 tablet with breakf ast Orally Once a day for 30 day(s) Active amLODIPine Besylate 5 MG 1 tablet Orally Once a day for 30 day(s) Active Rosuvastatin Calcium 20 MG 1 tablet Orally Once a day Active Atorvastatin Calcium 40 MG 1 tablet Orally Once a day for 30 day(s) Not-Taking Jardiance 25 MG 1 tablet Orally Once a day for 30 day(s) Active Extra Depth Diabetic Shoes with 3 Pair Custom heat-molded multi-density innersoles for 1 year Dx: 04/06/2024 A ctive Gabapentin & Diet Manage Prod Active Voltaren 1 % as directed Externally 04/06/2024 Active Trulicity 1.5 MG/0.5ML as directed Subcutaneous Active Metoprolol Succinate 100 MG 1 capsule Orally Once a day for 30 day(s) Active Immunizations Vaccine Route Administration Date Status Comme nts Influenza Unknown 03/08/2022 Administered Influenza Unknown 03/02/2024 Administered Social History Tobacco Use: Social History Observation [...] Problem Status W/U Status Risk Notes Problem Acquired hallux valgus (75761668) Hallux valgus (acquired), left foot (M20.12) Active confirmed Problem Polyneuropathy due to diabetes mellitus type I (770663535) Type 1 diabetes mellitus with diabetic polyneuropathy (E10.42) Active confirmed Problem Localized, primary osteoarthritis of the ankle and/or foot (866873656) Primary osteoarthritis, right ankle and foot (M19.071) Active confirmed Problem Localized, primary osteoarthritis of the ankle and/or foot (295663160) Primary osteoarthritis, left ankle and foot (M19.072) Active confirmed Problem Acquired hallux valgus (11402702) Hallux valgus (acquired), right foot (M20.11) Active confirmed Problem Acquired hammer toe of right foot (6287905809554926 ) Other hammer toe(s) (acquired), right foot (M20.41) Active confirmed Problem Acquired hammer toe of left foot (9248840337344334 ) Other hammer toe(s) (acquired), left foot (M20.42) Active confirmed Problem Polyneuropathy due to type 2 diabetes mellitus (257194829) Type 2 diabetes mellitus with diabetic polyneuropathy (E11.42) Active confirmed Vital Signs Blood pressure diastolic 78 mm Hg 07/06/2024 Height 5ft 3in in 07/06/2024 Blood pressure systolic 129 mm Hg 07/06/2024 Weight 206 lbs 07/06/2024 BMI 36.49 kg/m2 07/06/2024 Procedures Procedure Date Ordered Date Performed Result Body Sit e 90550-IRDVDDF NAIL, 6 OR MORE 07/06/2024 N/A 35101-RCCS SKIN LESIONS, OVER 4 07/06/2024 N/A Encounters Encounter Location Date Provider Diagnosis [address] [address] 11/27/2023 Luca Coffman Type 2 diabetes mellitus with [...] and foot M19.071 and Ingrowing nail L60.[address] [address] 03/11/2024 Luca Coffman Type 2 diabetes mellitus [...] and foot M19.071 and Ingrowing nail L60.[address] [address] 04/06/2024 Luca Coffman Type 2 diabetes mellitus with [...] and foot M19.071 and Ingrowing nail L60.[address] [address] 07/06/2024 Barbara Amezquita Type 2 diabetes mellitus with diabetic polyneuropathy E11.42 and Tinea unguium B35.1 Assessments Encounter Date Diagnosis (ICD Code) Assessment Notes Treatment Notes Treatment Clinical Notes Section Notes 11/27/2023 Type 2 diabetes mellitus with diabetic polyneuropathy (ICD-10 - E11.42) 03/11/2024 Type 2 diabetes mellitus with diabetic polyneuropathy (ICD-10 - E11.42) 04/06/2024 Type 2 diabetes mellitus with diabetic polyneuropathy (ICD-10 - E11.42) 07/06/2024 Type 2 diabetes mellitus with diabetic polyneuropathy (ICD-10 - E11.42) 07/06/2024 Tinea unguium (ICD-10 - B35.1) 04/06/2024 Pain in left foot (ICD-10 - M79.672) 03/11/2024 Pain in left foot (ICD-10 - M79.672) 11/27/2023 Pain in left foot (ICD-10 - M79.672) 11/27/2023 Pain in right foot (ICD-10 - M79.671) 03/11/2024 Pain in right foot (ICD-10 - M79.671) 04/06/2024 Pain in right foot (ICD-10 - M79.671) 04/06/2024 Metatarsalgia, left foot (ICD-10 - M77.42) 11/27/2023 Metatarsalgia, left foot (ICD-10 - M77.42) 03/11/2024 Metatarsalgia, left foot (ICD-10 - M77.42) 11/27/2023 Metatarsalgia, right foot (ICD-10 - M77.41) 03/11/2024 Metatarsalgia, right foot (ICD-10 - M77.41) 04/06/2024 Metatarsalgia, right foot (ICD-10 - M77.41) 04/06/2024 Hallux valgus (acquired), left foot (ICD-10 - M20.12) 03/11/2024 Hallux valgus (acquired), left foot (ICD-10 - M20.12) 11/27/2023 Hallux valgus (acquired), left foot (ICD-10 - M20.12) 11/27/2023 Hallux valgus (acquired), right foot (ICD-10 - M20.11) 03/11/2024 Hallux valgus (acquired), right foot (ICD-10 - M20.11) 04/06/2024 Hallux valgus (acquired), right foot (ICD-10 - M20.11) 04/06/2024 Other hammer toe(s) (acquired), left foot (ICD-10 - M20.42) 03/11/2024 Other hammer toe(s) (acquired), left foot (ICD-10 - M20.42) 11/27/2023 Other hammer toe(s) (acquired), left foot (ICD-10 - M20.42) 11/27/2023 Other hammer toe(s) (acquired), right foot (ICD-10 - M20.41) 03/11/2024 Other hammer toe(s) (acquired), right foot (ICD-10 - M20.41) 04/06/2024 Other hammer toe(s) (acquired), right foot (ICD-10 - M20.41) 04/06/2024 Pain in right toe(s) (ICD-10 - M79.674) 04/06/2024 Tinea unguium (ICD-10 - B35.1) 03/11/2024 Tinea unguium (ICD-10 - B35.1) 11/27/2023 Tinea unguium (ICD-10 - B35.1) 11/27/2023 Pain in right toe(s) (ICD-10 - M79.674) 03/11/2024 Pain in right toe(s) (ICD-10 - M79.674) 04/06/2024 Pain in left toe(s) (ICD-10 - M79.675) 04/06/2024 Primary osteoarthritis, left ankle and foot (ICD-10 - M19.072) 03/11/2024 Pain in left toe(s) (ICD-10 - M79.675) 11/27/2023 Pain in left toe(s) (ICD-10 - M79.675) 11/27/2023 Primary osteoarthritis, left ankle and foot (ICD-10 - M19.072) 03/11/2024 Primary osteoarthritis, left ankle and foot (ICD-10 - M19.072) 04/06/2024 Primary osteoarthritis, right ankle and foot (ICD-10 - M19.071) 04/06/2024 Ingrowing nail (ICD-10 - L60.0) 03/11/2024 Primary osteoarthritis, right ankle and foot (ICD-10 - M19.071) 11/27/2023 Primary osteoarthritis, right ankle and foot (ICD-10 - M19.071) 11/27/2023 Ingrowing nail (ICD-10 - L60.0) 03/11/2024 Ingrowing nail (ICD-10 - L60.0) Plan Of Treatment Pending Test Test Name Order Date X ray : Foot, left 3V 02/13/2023 X ray : Foot, left 3V 04/06/2024 X ray : Foot, right 3V 02/13/2023 X ray : Foot, right 3V 04/06/2024 44699-PYKLLSB NAIL, 6 OR MORE 07/06/2024 92064-OTCS SKIN LESIONS, OVER 4 07/06/20 24 44796-MQAI SKIN LESIONS, OVER 4 02/14/20 23 95494-OKAA SKIN LESIONS, OVER 4 05/09/20 23 Next Appt Details Provider Name:Barbara Woods jimmie, 11/05/2024 11:00:00 AM, [address] [place] [address], [phone], Insurance Providers Payer Name Payer Address Payer Phone Subscriber Number Group Number Insured Name Patient Relationship to Insured Coverage Start Date Coverage End Date A[employer] [address] [place] [phone] [id number] Jannette Luther i Self - patient is the insured Medical (General) History Medical History History ICD Code Arthritis Diabetic High blood pressure Measles Chicken pox Psoriasis/eczema Surgical History Surgery Date(Month/Year) tonsillectomy 1967 jaw surgery 1969 appendectomy 1971 carpal tunnel surgery 2004
[2024-09-14 10:10] LABS: Estimated Average Glucose 163 mg/dL; Hemoglobin A1c % 7.3 % (<6.0); Total Hemoglobin (HGBA1C) 3436.8977 umol/L
== END 2024-09-14 09:10 | disposition home or self-care (01) ==
LOC: HO.LAB 09:09
PROVIDERS: PCP Internal Medicine; Visit Provider Internal Medicine
DX: E11.65 Type 2 diabetes mellitus with hyperglycemia (principal); E78.00 Pure hypercholesterolemia, unspecified; I10 Essential (primary) hypertension; Z68.36 Body mass index [BMI] 36.0-36.9, adult
CPT/HCPCS: 36415; 83036

== ENCOUNTER 2024-09-15 08:34 | Outpatient (REF) | payer MEDICARE, SELFPAY ==
--- OUTSIDE RECORDS SUMMARY | 2024-09-15 09:15 | XMS_ITS ---
Author Organization [facility] Address [address] [address] [place] [address] Care Team Providers Care Public Health Nurse Name Role Phone Paco Fely Primary Care Provider Unavailab Barbara Burch Unavailable [phone] Luca Coffman Unavailable [phone] Allergies No Known Allergies REASON FOR VISIT [...] 03/11/2024 Encounters Encounter Location Date Provider Diagnosis [facility] [place] [address] [place] [address] 03/11/2024 Luca Coffman Type 2 diabetes mellitus [...] Name:Barbara Burtjose manuel samuel, 11/05/2024 11:00:00 AM, [address] [place] [address], [phone], Procedure Notes * Category Sub-Category Detail Notes [...] or Cutting o f Benign Hyperkeratotic Lesion(s) 21063 ( More than 4 Lesions ) - The Benign hyperkeratotic lesions, as described above were pared, and/or cut utilizing a sterile 15 blade, tissue nippers, and/or dremel Progress Notes * Jannette CARRILLODOB: [birth year] (73 yo F)Acc No.[id number]:03/11/2024 Progress Note Patient:?Jannette Carrillo Provider:?Luca Coffman DPM :1950???Age:73 Y???Sex:Female D ate:03/11/2024 Address:[address], [place] , [id number] Pcp:Fely Antonio Subjective: * Chief Complaints: * [...] Procedures:?Keratoma Treatment:?Parring or Cutting of Benign Hyperkeratotic Lesion(s)?11180 ( More than 4 Lesions ) - [...] surgical procedures to prevent recurrence.? * Procedure Codes:?96150 Avuls ion Plate, Modifiers: T5 55983 TRIM SKIN LESIONS, OVER 4, Modifiers: XS [...] DPM Date:? 024 Generated for Annie vigil/Lane/Teresa on:?09/15/2024 09:15 AM EDT History and Physical Notes * [...]
--- OUTSIDE RECORDS SUMMARY | 2024-09-15 09:16 | XMS_ITS | Clinical Summary ---
Author Organization [facility] it[facility] Address [address] [place] [address] Care Team Providers Care Planning Advisor Name Role Phone Unavailable Primary Care Provider [...]
--- OUTSIDE RECORDS SUMMARY | 2024-09-15 09:16 | XMS_ITS | Patient Health Record ---
Author Organization [facility] Address [address] [facility] [address] [place] [address] Care Team Providers Care Asphalt Tile Floor Layer Name Role Phone Paco Fely Primary Care Provider Unavailab Barbara Burch Unavailable [phone] Luca Coffman Unavailable [phone] Allergies No Known Allergies Results Component Value [...] Status Risk Notes Problem Acquired hallux valgus (28363535) Hallux valgus (acquired), left foot (M20.12) Active confirmed Problem Polyneuropathy due to diabetes mellitus type I (436935190) Type 1 diabetes mellitus with diabetic polyneuropathy (E10.42) Active confirmed Problem Localized, primary osteoarthritis of the ankle and/or foot (450293472) Primary osteoarthritis, right ankle and foot (M19.071) Active confirmed Problem Localized, primary osteoarthritis of the ankle and/or foot (702819054) Primary osteoarthritis, left ankle and foot (M19.072) Active confirmed Problem Acquired hallux valgus (16187753) Hallux valgus (acquired), right foot (M20.11) Active confirmed Problem Acquired hammer toe of right foot (4552464887789745 ) Other hammer toe(s) (acquired), right foot (M20.41) Active confirmed Problem Acquired hammer toe of left foot (7750246011539483 ) Other hammer toe(s) (acquired), left foot (M20.42) Active confirmed Problem Polyneuropathy due to type 2 diabetes mellitus (519549750) Type 2 diabetes mellitus with diabetic polyneuropathy (E11.42) Active confirmed Vital Signs Blood pressure diastolic 78 mm Hg 07/06/2024 Height 5ft 3in in 07/06/2024 Blood pressure systolic 129 mm Hg 07/06/2024 Weight 206 lbs 07/06/2024 BMI 36.49 kg/m2 07/06/2024 Procedures Procedure Date Ordered Date Performed Result Body Sit e 15906-SVDAWUS NAIL, 6 OR MORE 07/06/2024 N/A 78569-YGWS SKIN LESIONS, OVER 4 07/06/2024 N/A Encounters Encounter Location Date Provider Diagnosis [address] [address] 11/27/2023 Luca Coffman Type 2 diabetes mellitus [...] and foot M19.071 and Ingrowing nail L60.[address] [address] 03/11/2024 Luca Coffman Type 2 diabetes mellitus [...] and foot M19.071 and Ingrowing nail L60.[address] [address] 04/06/2024 Luca Coffman Type 2 diabetes mellitus [...] and foot M19.071 and Ingrowing nail L60.[address] [address] 07/06/2024 Barbara Amezquita Type 2 diabetes mellitus [...] X ray : Foot, right 3V 04/06/2024 29113-NIWCKJI NAIL, 6 OR MORE 07/06/2024 56645-EOQA SKIN LESIONS, OVER 4 07/06/20 24 61025-ONZM SKIN LESIONS, OVER 4 02/14/20 23 96077-AVOL SKIN LESIONS, OVER 4 05/09/20 23 Next Appt Details Provider Name:Barbara Woods jimmie, 11/05/2024 11:00:00 AM, [address] [place] [address], [phone], Insurance Providers Payer Name Payer Address Payer Phone Subscriber Number Group Number Insured Name Patient Relationship to Insured Coverage Start Date Coverage End Date A[employer] [address] [place] [address] [id number] Jannette Luther i Self - patient is the insured Medical (General) History Medical History History ICD Code Arthritis Diabetic High blood pressure Measles Chicken pox Psoriasis/eczema Surgical History Surgery Date(Month/Year) tonsillectomy 1967 jaw surgery 1969 appendectomy 1971 carpal tunnel surgery 2004
--- OUTSIDE RECORDS SUMMARY | 2024-09-15 09:16 | XMS_ITS ---
Author Organization [facility] [address] [facility] [address] [place] [address] Care Team Providers Care Molder Hand Name Role Phone Fely Antonio Primary Care Provider UnavailBarbara Huerta Unavailable [phone] Allergies No Known Allergies REASON FOR VISIT [...] Polyneuropathy due to diabetes mellitus type I (211557403) Type 1 diabetes mellitus with diabetic polyneuropathy (E10.42) Active confirmed Vital Signs Height 5ft 3in in 07/06/2024 Weight 206 lbs 07/06/2024 BMI 36.49 kg/m2 07/06/2024 Blood pressure systolic 129 mm Hg 07/06/20 24 Blood pressure diastolic 78 mm Hg 024 Procedures Procedure Date Ordered Date Performed Result Body Sit e 76209-WNKXBWI NAIL, 6 OR MORE 07/06/2024 N/A 66016-HTSW SKIN LESIONS, OVER 4 07/06/2024 N/A Encounters Encounter Location Date Provider Diagnosis [facility] [address] [place] [address] 07/06/2024 Barbara Amezquita Type 2 diabetes mellitus with diabetic polyneuropathy E11.42 and Tinea unguium B35.1 Assessments Encounter Date Diagnosis (ICD Code) Assessment Notes Treatment Notes Treatment Clinical Notes Section Notes 07/06/2024 Type 2 diabetes mellitus with diabetic polyneuropathy (ICD-10 - E11.42) 07/06/2024 Tinea unguium (ICD-10 - B35.1) Plan Of Treatment Pending Test Test Name Order Date 06927-AVMHHRR NAIL, 6 OR MORE 07/06/2024 65255-FTQD SKIN LESIONS, OVER 4 07/06/20 24 Next Appt Details Follow Up: 3 Months, Reason: Provider Name:Barbara Burtjose manuel jimmie, 11/05/2024 11:00:00 AM, [address] [place], [address], Procedure Notes * Category Sub-Category Detail Notes [...] use of a nail nipper and/or dremel-type grinder operator tool, to a more viable healthy nail plate [...] to maintain effectiveness in symptomatic relief - 67746 Keratoma Treatment Parring or Cutting o f [...] instrumentation by the physician of record - 19142 Progress Notes * Jannette CARRILLODOB: [birth year] (74 yo F)Acc No.[id number]:07/06/2024 Progress Note Patient:?Bartolo CARRILLOidi Provider:?Barbara Amezquita DPM :1950???Age:74 Y???Sex:Female D ate:07/06/2024 Address:[address], [place] , [id number] Pcp:Fely Antonio Subjective: * Chief Complaints: * [...] use of a nail nipper and/or dremel-type grinder operator tool, to a more viable healthy nail plate [...] to maintain effectiveness in symptomatic relief - 19944.?Keratoma Treatment:?Parring or Cutting of Benign Hyperkeratotic Lesion(s)?(-57) [...] instrumentation by the physician of record - 64331.? * Procedure Codes:?75987 DEBRI DE NAIL, 6 OR MORE, Modifiers: XS 54883 TRIM SKIN LESIONS, OVER 4, Modifiers: XS * Follow Up:?3 Months * Images: * Sign off status: Completed true * Provider:?Barbara Amezquita DPM Date:?1 Generated for Christai musa/Fakamila/eTransmitting on:?09/15/2024 09:15 AM EDT History and Physical [...]
--- OUTSIDE RECORDS SUMMARY | 2024-09-15 09:16 | XMS_ITS ---
Author Organization [facility] Address [address] [facility] Juanito Rogers [place] [address] Care Team Providers Care Intelligence Specialist Name Role Phone Paco Fely Primary Care Provider Unavailab Barbara Burch Unavailable [phone] Luca Coffman Unavailable [phone] Allergies No Known Allergies REASON FOR VISIT Last PCP Visit: 03/30/2024 Medications Medication SIG (Take, Route, Frequency, Duration) Notes Start Date End Date Status Losartan Potassium 25 MG 1 tablet Orally Once a day for 30 day(s) Active Voltaren 1 % as directed Externally 04/06/2024 Active Extra Depth Diabetic Shoes with 3 Pair Custom heat-molded multi-density innersoles for 1 year Dx: 04/06/2024 A ctive Metoprolol Succinate 100 MG 1 capsule Orally Once a day for 30 day(s) Active Trulicity 1.5 MG/0.5ML as directed Subcutaneous Active metFORMIN HCl 500 MG 1 tablet [...] 1 tablet Orally Once a day Active glipiZIDE ER 10 MG 1 tablet [...] user? No Vital Signs Height 5ft3in in 04/06/2024 Weight 206 lbs 04/06/2024 BMI 36.49 kg/m2 04/06/2024 Encounters Encounter Location Date Provider Diagnosis [facility] [address] [address] 04/06/2024 Luca Coffman Type 2 diabetes mellitus [...] Treatment Notes Treatment Clinical Notes Section Notes 04/06/2024 Type 2 diabetes mellitus with diabetic polyneuropathy (ICD-10 - E11.42) 04/06/2024 Pain in left foot (ICD-10 - M79.672) 04/06/2024 Pain in right foot (ICD-10 - M79.671) 04/06/2024 Metatarsalgia, left foot (ICD-10 - M77.42) 04/06/2024 Metatarsalgia, right foot (ICD-10 - M77.41) 04/06/2024 Hallux valgus (acquired), left foot (ICD-10 - M20.12) 04/06/2024 Hallux valgus (acquired), right foot (ICD-10 - M20.11) 04/06/2024 Other hammer toe(s) (acquired), left foot (ICD-10 - M20.42) 04/06/2024 Other hammer toe(s) (acquired), right foot (ICD-10 - M20.41) 04/06/2024 Tinea unguium (ICD-10 - B35.1) 04/06/2024 Pain in right toe(s) (ICD-10 - M79.674) 04/06/2024 Pain in left toe(s) (ICD-10 - M79.675) 04/06/2024 Primary osteoarthritis, left ankle and foot (ICD-10 - M19.072) 04/06/2024 Primary osteoarthritis, right ankle and foot (ICD-10 - M19.071) 04/06/2024 Ingrowing nail (ICD-10 - L60.0) Plan Of Treatment Medication Medication Name Sig Start Date Stop Date Notes Voltaren 1 % as directed Externally 04/06/2024 Extra Depth Diabetic Shoes w ith 3 Pair Custom heat-molded multi-density innersoles for 1 year Dx: 04/06/2024 Pending Test Test Name Order Date X ray : Foot, left 3V 04/06/2024 X ray : Foot, right 3V 04/06/2024 Next Appt Details Follow Up: 3 Months, Reason: Provider Name:Barbara samuel, 11/05/2024 11:00:00 AM, [address] [place] [address], [phone], Progress Notes * Jannette CARRILLODOB: [birth year] (73 yo F)Acc No.[id number]:04/06/2024 Progress Note Patient:?Jannette Carrillo Provider:?Luca Coffman DPM :1950???Age:73 Y???Sex:Female D ate:04/06/2024 Address:[address], [place] , [place] Pcp:Fely Antonio Subjective: * Chief Complaints: * ??? Last PCP Visit: 4 * HPI: ???At Risk footcare:?Pt States Last PCP Visit:?Date?09/06/2023 ???Foot Pain:?Nature:?aching, burning.?Location?Bottom, Forefoot, B/L.?Duration:?several years.?Onset/Cause:?unknown, denies trauma.?Course:?worse.?Aggrevated:?any pressure, standing, walking, barefoot walking.?Treatments:?rest, alphaplex did not help.?Quality/Severity?9, scale 1-10 in barefeet.?Toe pain:?Nature:?tingling, pins.?Location:?B/L feet--left is worse.?Duration:?several weeks.?Course:?worse , [...] Objective: * Vitals:?Ht: 5ft3in, Wt:206, BMI:36.49, Shoe size:8, BS:not taken. * ???Past Orders: ???Lab:HEMOGLOBIN A1C (GLYCO HEMOGLOBIN) (Order Date - 04/06/2024) (Collection Date - 03/30/2024) ? Value Reference Range ?TOTAL HEMOGLOBIN (HGBA1C) 6.7 * Examination: ???Ophthalmology Referral: ?DIABETES EYE EXAM?Diabetic Retinopathy Screening:?Yes 04/2023 ?Findings of Diabetic Eye Exam:?no retinopathy?Neurological: ?SENSORY:?Neurological exam demonstrates , reduced vibration sensation , 5.07 monofilament test performed at plantar aspects of 5 varied sites per foot shows sensation , reduced , B/L.?TINEL'S COMPRESSION:?Negative tarsal tunnel, nelida pedis, and medial calcaneal nerves B/L.?BABINSKI REFLEX:?absent.?Vascular: ?DP PULSES(B):? 0/4, B/L.?PT PULSES(B):? 0/4, B/L.?CAPILLARY FILL TIME:?3 secs. per digit, B/L.?TROPHIC CONDITION-TEXTURE/ELASTICITY/TURGOR/HAIR GROWTH(B):?normal, B/L.?TEMPERTURE GRADIENT(C):?warm to cool, proximal to distal, B/L.?PIGMENTATION:?normal, B/L.?EDEMA(C):?no edema.?TELANGECTASIA:?absent.?VARICOSITIES:?absent.?Nails: ?NAILS are:? Elongated, overgrown, dystrophic, lytic, [...] neuropathy, groove hypertrophy, , Bilateral nail borders, T5.?X-Rays - IMAGING REPORT: ?Clinical Indication(s):? Evaluate Biomechanical Deformity.?Views:? 3 views of Foot, B/L.?Findings:? moderate generalized decrease in bone density.?Foot structure:? reveals excess pronation with, anterior break in cyme line.?Digits:? show asymmetrical joint space narrowing at the PIPJ consistent with clinical finding of hammertoe deformity, show enlarged/hypertrophied phalangeal head(s) consistent for clinical finding of hammertoe deformity.?HAV:? increased First Intermetatarsal angle and Hallux Abductus angle consistent with Bunion deformity noted, hypertrophy of the dorsal and medial 1st MTH without subchondral cyst, moderate, severe.? Assessment: * Assessment: 1.?Type 2 diabetes mellitus with diabetic polyneuropathy - E11.42?2.?Pain in left foot - M79.672?3.?Pain in right foot - M79.671?4.?Metatarsalgia, left foot - M77.42?5.?Metatarsalgia, right foot - M77.41?6.?Hallux valgus (acquired), left foot - M20.12?7.?Hallux valgus (acquired), right foot - M20.11?8.?Other hammer toe(s) (acquired), left foot - M20.42?9.?Other hammer toe(s) (acquired), right foot - M20.41?10.?Pain in right toe(s) - M79.674?11.?Tinea unguium - B35.1 (Primary)?12.?Pain in left toe(s) - M79.675?13.?Primary osteoarthritis, left ankle and foot - M19.072?14.?Primary osteoarthritis, right ankle and foot - M19.071?15.?Ingrowing nail - L60.0? Plan: * Treatment: 2.?Pain in left foot?Imaging: X ray : Foot, left 3V 3.?Pain in right foot? Start Voltaren Gel, 1 %, as directed, Externally.?Imaging: X ray : Foot, right 3V * Procedure Codes:?56630 X-RAY EXAM OF LEFT FOOT 3V, Modifiers: 26 , IC90657 X-RAY EXAM OF RIGHT FOOT 3V, Modifiers: 26 , RT * Preventive Medicine:? ??Counseling:?Discussion:?-14: Office or other outpatient visit for the evaluation and management of an established patient, which required a medically appropriate history and/or examination and MODERATE level of DECISION MAKING for: 1 OR MORE CHRONIC PROBLEM(S) THATS WORSENING, 2 STABLE CHRONIC PROBLEMS, A NEWLY DIAGNOSED PROBLEM WITH UNCERTAIN PROGNOSIS, AN ACUTE COMPLICATED INJURY WITH MULTIPLE TREATMENT OPTIONS, OR AN ACUTE PROBLEM WITH ACCOMPANYING SYSTEMIC SYMPTOMS, THAT POSE(S) A MODERATE RISK OF MORBIDITY. THIS CONDITION MAY ALSO INCLUDE RX DRUG MANAGEMENT, OR A DECISON FOR MINOR SURGERY. The visit on the day of the [...] have encouraged the patient to call the office.?Metatarsalgea:?I explained to the patient the possible etiologies [...] success were answered to their verbally confirmed satisfaction, Topical analgesics of Aspercream or Voltaren gel.?Shoe Gear Counseling:?The patient and I reviewed the types of shoes they should be wearing. My recommendation included obtaining a well-fitted shoe with a good supportive, non-foldable nor twistable sole, plenty of toe/room for the forefoot, and proper arch support. Based on todays examination, I recommended the patient look for new shoes, by having their feet professionally measured. We discussed that generally the best time of the day for a shoe fitting is the afternoon. Different shoes types and brands to best match the patients occupation and vocation were discussed. Specific brand selection will be up to the patient, their individual foot condition/deformities, and fit. The patient and I reviewed the standard new shoe break in period by wearing them for a few hours a day while checking for redness or sores as wear time is increased. The patient verbally confirmed to understanding the information discussed, Rx: Extra Depth Orthopedic Shoes with 3 pair of custom heat-molded inserts.? * Follow Up:?3 Months * Images: * Sign off status: Completed true * Provider:?Luca Coffman DPM Date:? 024 Generated for Annie vigil/Lane/eTpooja on:?09/15/2024 09:15 AM EDT History and Physical Notes * HPI (History of Present Illness) Category Sub-Category Detail Notes Category Not es Toe pain Nature: tingling, pins Location: B/L feet--left is wo rse Duration: several weeks Course: worse , progressive Treatments: motion helps Severity/Quality: mild , moderate At Risk footcare Pt States Last PCP Visit: Date: 4 Foot Pain Aggrevated: any pressure, st anding, walking, barefoot walking Onset/Cause: unknown, denies gwen ma Course: worse Duration: several years Nature: [...] on palpation due to neuropathy, 1-5 B/L X-Rays - IMAGING REPORT Findings: moderate generalized decrease in bone density Digits: show asymmetrical sabrina int space narrowing at the PIPJ consistent with clinical finding of hammertoe deformity, show enlarged/hypertrophied phalangeal head(s) consistent for clinical finding of hammertoe deformity Foot structure: reveals excess prona tion with, anterior break in cyme line HAV: increased First Inte rmetatarsal angle and Hallux Abductus angle consistent with Bunion deformity noted, hypertrophy of the dorsal and medial 1st MTH without subchondral cyst, moderate, severe Views: 3 views of Foot, B/L Clinical Indication(s): Evaluate Biomech anical Deformity
[2024-09-15 10:18] LABS: Alanine Aminotransferase 20 U/L (0-31); Albumin Level 4.2 g/dL (3.5-5.0); Alkaline Phosphatase 74 U/L (39-117); Anion Gap 11 (12-20); Aspartate Amino Transferase 22 U/L (5-31); Bilirubin Total 0.3 mg/dL (0.0-1.0); Blood Urea Nitrogen 33 mg/dL (9-16); Calcium 9.4 mg/dL (8.4-10.2); Carbon Dioxide 26 mmol/L (22-29); Chloride 110 mmol/L (96-108); Estimated Glomerular Filt Rate 39; Glucose Random 146 mg/dL (60-115); Potassium 4.4 mmol/L (3.3-5.1); Sodium 143 mmol/L (135-145); Total Protein 7.3 g/dL (6.5-8.0)
== END 2024-09-15 08:35 | disposition home or self-care (01) ==
LOC: HO.LAB 08:34
PROVIDERS: PCP Internal Medicine; Visit Provider Internal Medicine
DX: E11.65 Type 2 diabetes mellitus with hyperglycemia (principal); E78.00 Pure hypercholesterolemia, unspecified; I10 Essential (primary) hypertension; Z68.36 Body mass index [BMI] 36.0-36.9, adult
CPT/HCPCS: 36415; 80053

== ENCOUNTER 2024-12-17 08:29 | Outpatient (REF) | payer MEDICARE, SELFPAY ==
--- OUTSIDE RECORDS SUMMARY | 2024-12-17 08:42 | XMS_ITS | Patient Health Record ---
Author Organization [facility] Address [address] [facility] [address] [place] [address] Care Team Providers Care Filling Technician Name Role Phone Paco Fely Primary Care Provider Unavailab Barbara Burch Unavailable [phone] Luca Coffman Unavailable [phone] Allergies No Known Allergies Results Component Value Reference Range Notes HEMOGLOBIN A1C (GLYCOHEMOGLO BIN) Reviewed date:04/06/2024 12:08:14 PM Interpretation: Performing Lab: Notes/Report: TOTAL HEMOGLOBIN (HGBA1C) 6.7 HEMOGLOBIN A1C (GLYCOHEMOGLO BIN) Reviewed date:07/06/2024 02:02:21 PM Interpretation: Performing Lab: Notes/Report: TOTAL HEMOGLOBIN (HGBA1C) 7.3 HEMOGLOBIN A1C (GLYCOHEMOGLO BIN) Reviewed date:11/05/2024 11:00:14 AM Interpretation: Performing Lab: Notes/Report: HEMOGLOBIN A1C % (HH) 6.9 HEMOGLOBIN A1C (GLYCOHEMOGLO BIN) Reviewed date:11/05/2024 08:15:53 AM Interpretation: Performing Lab: Notes/Report: HEMOGLOBIN A1C % (HH) 7.3 Reason For Referral No Information Medications [...] day for 30 day(s) Active Extra Depth Orthopedic Shoes (1 Pair) with Customized Heat Molded Multidensity Innersoles (3 Pair) as directed Dx: NIDDM/Polyneuropathy (E11.42), Hammertoe Foot Deformity (M20.41,M20.42), Preulcerative Skin Lesion(s) (L85.1 11/05/2024 Active metFORMIN HCl 500 MG 1 tablet with a efraín l Orally Once a day for 30 day(s) Active Atorvastatin Calcium 40 MG 1 tablet [...] for 1 year Dx: 02/13/2023 A ctive Extra Depth Diabetic Shoes with 3 Pair Custom heat-molded multi-density innersoles for 1 year Dx: 04/06/2024 A ctive Gabapentin & Diet Manage Prod Active Voltaren 1 % as directed Externally 04/06/2024 Active Rosuvastatin Calcium 20 MG 1 tablet Orally Once a day Active Immunizations Vaccine Route Administration Date Status Comme nts Influenza Unknown 03/08/2022 Administered Influenza Unknown 03/02/2024 Administered Social History Tobacco Use: Social History Observation Description Date Details (start date - stop date) Never Smoker NA - NA Tobacco use other than smoking: Question Answer Notes Are you an other tobacco user? No Tobacco Control (Standard) Question Answer Notes Tobacco use: Nonsmoker Additional Findings: Tobacco non-user Current no nsmoker AUDIT-C (Standard) Question Answer Notes Did you have a drink containing alcohol in the p ast year? No Points 0 Interpretation Negative Problems Problem Type SNOMED Code ICD Code Onset Dates Problem Status W/U Status Risk Notes Problem Polyneuropathy due to type 2 diabetes mellitus (593745459) Type 2 diabetes mellitus with diabetic polyneuropathy (E11.42) Active confirmed Vital Signs Blood pressure diastolic 60 mm Hg 11/05/2024 Height 5ft 3in in 11/05/2024 Blood pressure systolic 128 mm Hg 11/05/2024 Weight 206 lbs 11/05/2024 BMI 36.49 kg/m2 11/05/2024 Procedures Procedure Date Ordered Date Performed Result Body Sit e 07893-LFFCRLT NAIL, 6 OR MORE 07/06/2024 N/A 20481-IOLU SKIN LESIONS, OVER 4 07/06/2024 N/A 03035-VQRXVOX NAIL, 6 OR MORE 11/05/2024 N/A 69774-JYSN SKIN LESIONS, OVER 4 11/05/2024 N/A Encounters Encounter Location Date Provider Diagnosis [address] [address] 03/11/2024 Luca Coffman Type 2 diabetes mellitus [...] and foot M19.071 and Ingrowing nail L60.[address] [address] 04/06/2024 Luca Coffman Type 2 diabetes mellitus [...] and foot M19.071 and Ingrowing nail L60.[address] [facility] [address] 07/06/2024 Barbara Amezquita Type 2 diabetes mellitus with diabetic polyneuropathy E11.42 and Tinea unguium B35.[address] [address] 11/05/2024 Barbara Amezquita Other hammer toe(s) (acquired), right foot M20.41 ; Other hammer toe(s) (acquired), left foot M20.42 ; Type 2 diabetes mellitus with diabetic polyneuropathy [...] E11.42) 07/06/2024 Tinea unguium (ICD-10 - B35.1) 11/05/2024 Other hammer toe(s) (acquired), right foot (ICD-10 - M20.41) Patient Educated with: DIABETIC FOOT CARE INSTRUCTIONS. pdf (DIABETIC FOOT CARE INSTRUCTIONS. pdf) 11/05/2024 Other hammer toe(s) (acquired), left foot (ICD-10 - M20.42) 11/05/2024 Type 2 diabetes mellitus with diabetic polyneuropathy (ICD-10 - E11.42) 04/06/2024 Pain in left foot (ICD-10 - M79.672) 03/11/2024 Pain in left foot (ICD-10 - M79.672) 03/11/2024 Pain in right foot (ICD-10 - M79.671) 04/06/2024 Pain in right foot (ICD-10 - M79.671) 11/05/2024 Tinea unguium (ICD-10 - B35.1) 04/06/2024 Metatarsalgia, left foot (ICD-10 - M77.42) 03/11/2024 [...] B35.1) 03/11/2024 Tinea unguium (ICD-10 - B35.1) 03/11/2024 [...] X ray : Foot, right 3V 04/06/2024 76607-GMIAGTA NAIL, 6 OR MORE 07/06/2024 70723-BYWPOOG NAIL, 6 OR MORE 11/05/2024 03754-WKEG SKIN LESIONS, OVER 4 11/06/19 25 80904-LRHT SKIN LESIONS, OVER 4 07/06/20 24 03528-PSUZ SKIN LESIONS, OVER 4 02/14/20 23 59217-EEOG SKIN LESIONS, OVER 4 05/09/20 23 Next Appt Details Provider Name:Barbara Woods jimmie, 02/10/2025 09:15:00 AM, [address] [place] [address], [address], Insurance Providers Payer Name Payer Address Payer Phone Subscriber Number Group Number Insured Name Patient Relationship to Insured Coverage Start Date Coverage End Date [employer] [address] [place] [phone] [id number] Jannette Luther i Self - patient is the insured Medical (General) History Medical History History ICD Code Arthritis Diabetic High blood pressure Measles Chicken pox Psoriasis/eczema Surgical History Surgery Date(Month/Year) tonsillectomy 1967 jaw surgery 1969 appendectomy 1971 carpal tunnel surgery 2004
[2024-12-17 09:13] LABS: Estimated Average Glucose 160 mg/dL; Hemoglobin A1c % 7.2 % (<6.0); Total Hemoglobin (HGBA1C) 3474.0717 umol/L
[2024-12-17 09:28] LABS: Alanine Aminotransferase 21 U/L (0-31); Albumin Level 4.5 g/dL (3.5-5.0); Alkaline Phosphatase 65 U/L (39-117); Anion Gap 11 (12-20); Aspartate Amino Transferase 22 U/L (5-31); Bilirubin Total 0.4 mg/dL (0.0-1.0); Blood Urea Nitrogen 31 mg/dL (9-16); Calcium 9.9 mg/dL (8.4-10.2); Carbon Dioxide 25 mmol/L (22-29); Chloride 108 mmol/L (96-108); Estimated Glomerular Filt Rate 39; Glucose Random 169 mg/dL (60-115); Potassium 4.4 mmol/L (3.3-5.1); Sodium 140 mmol/L (135-145); Total Protein 7.3 g/dL (6.5-8.0)
== END 2024-12-17 08:30 | disposition home or self-care (01) ==
LOC: HO.LAB 08:29
PROVIDERS: PCP Internal Medicine; Visit Provider Internal Medicine
DX: I12.9 Hypertensive chronic kidney disease with stage 1 through stage 4 chronic kidney disease, or unspecified chronic kidney disease (principal); E11.22 Type 2 diabetes mellitus with diabetic chronic kidney disease; N18.9 Chronic kidney disease, unspecified
CPT/HCPCS: 36415; 80053; 83036

== ENCOUNTER 2025-03-16 08:50 | Outpatient (REF) | payer MEDICARE, SELFPAY ==
[2025-03-16 09:13] LABS: MANUAL DIFF FLAG NO
[2025-03-16 09:55] LABS: Hematocrit 39.5 % (37.0-47.0); Hemoglobin 13.2 g/dl (12.0-16.0); Imm Gran Abs Auto 0.02 X10*3/uL (0.00-0.03); Imm Gran Pct Auto 0.3 % (0.0-0.4); Lymphocytes Absolute Auto 3.0 X10*3/uL (1.2-4.9); Mean Corpuscular HGB Conc 33.4 g/dl (31.0-35.0); Mean Corpuscular Hemoglobin 29.0 pg (27.0-33.0); Mean Corpuscular Volume 86.8 fL (80.0-98.0); NRBC Abs Auto 0.000 X10*3/uL (0.0-0.012); NRBC Pct Auto 0.0 /100WBC (0.0-0.2); Platelet Count 277 X10*3/uL (160-400); Red Blood Count 4.55 X10*6/uL (4.20-5.50); White Blood Count 7.0 X10*3/uL (4.8-10.8)
--- OUTSIDE RECORDS SUMMARY | 2025-03-16 09:59 | XMS_ITS | Patient Health Record ---
Author Organization [facility] Address [address] [facility] [address] [place] [address] Care Team Providers Care Process Development Manager Name Role Phone Paco Fely Primary Care Provider Unavailab Barbara Burch Unavailable [phone] Luca Coffman Unavailable [phone] Allergies No Known Allergies Results Component Value Reference Range Notes HEMOGLOBIN A1C (GLYCOHEMOGLO BIN) Reviewed date:04/06/2024 12:08:14 PM Interpretation: Performing Lab: Notes/Report: TOTAL HEMOGLOBIN (HGBA1C) 6.7 HEMOGLOBIN A1C (GLYCOHEMOGLO BIN) Reviewed date:07/06/2024 02:02:21 PM Interpretation: Performing Lab: Notes/Report: TOTAL HEMOGLOBIN (HGBA1C) 7.3 HEMOGLOBIN A1C (GLYCOHEMOGLO BIN) Reviewed date:11/05/2024 08:15:53 AM Interpretation: Performing Lab: Notes/Report: HEMOGLOBIN A1C % (HH) 7.3 HEMOGLOBIN A1C (GLYCOHEMOGLO BIN) Reviewed date:11/05/2024 11:00:14 AM Interpretation: Performing Lab: Notes/Report: HEMOGLOBIN A1C % (HH) 6.9 Reason For Referral No Information Medications Medication SIG (Take, Route, Frequency, Duration) Notes Start Date End Date Status Extra Depth Diabetic Shoes with 3 Pair Custom heat-molded multi-density innersoles for 1 year Dx: 02/13/2023 A ctive Extra Depth Diabetic Shoes with 3 Pair Custom heat-molded multi-density innersoles for 1 year Dx: 04/06/2024 A ctive Gabapentin & Diet Manage Prod Active Voltaren 1 % as directed Externally 04/06/2024 Active Rosuvastatin Calcium 20 MG 1 tablet Orally Once a day Active Extra Depth Orthopedic Shoes (1 Pair) with Customized Heat Molded Multidensity Innersoles (3 Pair) as directed Dx: NIDDM/Polyneuropathy (E11.42), Hammertoe Foot Deformity (M20.41,M20.42), Preulcerative Skin Lesion(s) (L85.1 11/05/2024 Active Jardiance 25 MG 1 tablet Orally Once a day; Duration: 30 day(s) Active Atorvastatin Calcium 40 MG 1 tablet Orally Once a day; Duration: 30 day(s) Not-Arnulfo ing Trulicity 1.5 MG/0.5ML as directed Subcutaneous Active Metoprolol Succinate 100 MG 1 capsule Orally Once a day; Duration: 30 day(s) Active Losartan Potassium 25 MG 1 tablet Orally Once a day; Duration: 30 day(s) Active glipiZIDE ER 10 MG 1 tablet with breakf ast Orally Once a day; Duration: 30 day(s) Active amLODIPine Besylate 5 MG 1 tablet Orally Once a day; Duration: 30 day(s) Active metFORMIN HCl 500 MG 1 tablet with a efraín l Orally Once a day; Duration: 30 day(s) Active Immunizations Vaccine Route Administration [...] Polyneuropathy due to type 2 diabetes mellitus (335601511) Type 2 diabetes mellitus with diabetic polyneuropathy (E11.42) Active confirmed Vital Signs Blood pressure diastolic 65 mm Hg 02/10/2025 Height 5ft 3in in 02/10/2025 Blood pressure systolic 128 mm Hg 02/10/2025 Weight 206 lbs 02/10/2025 BMI 36.49 kg/m2 02/10/2025 Procedures Procedure Date Ordered Date Performed Result Body Sit e 86313-CSQIUUH NAIL, 6 OR MORE 07/06/2024 N/A 71701-WKBA SKIN LESIONS, OVER 4 07/06/2024 N/A 10031-GTDGXON NAIL, 6 OR MORE 11/05/2024 N/A 87766-RCWB SKIN LESIONS, OVER 4 11/05/2024 N/A Encounters Encounter Location Date Provider Diagnosis [address] [address] 04/06/2024 Luca Coffman Type 2 diabetes mellitus [...] and foot M19.071 and Ingrowing nail L60.[address] [address] 07/06/2024 Barbara Amezquita Type 2 diabetes mellitus with diabetic polyneuropathy E11.42 and Tinea unguium B35.[address] [address] 11/05/2024 Barbara Amezquita Other hammer toe(s) (acquired), right foot M20.41 ; Other hammer toe(s) (acquired), left foot M20.42 ; Type 2 diabetes mellitus with diabetic polyneuropathy E11.42 and Tinea unguium B35.[address] [address] 02/10/2025 Barbara Amezquita Type 2 diabetes mellitus with [...] toe(s) (acquired), left foot (ICD-10 - M20.42) 02/10/2025 Type 2 diabetes mellitus with diabetic polyneuropathy (ICD-10 - E11.42) 02/10/2025 Tinea unguium (ICD-10 - B35.1) 11/05/2024 Type 2 diabetes mellitus with diabetic [...] M79.674) 04/06/2024 Tinea unguium (ICD-10 - B35.1) 04/06/2024 Pain in left toe(s) (ICD-10 - [...] X ray : Foot, right 3V 04/06/2024 43587-OBFFRLE NAIL, 6 OR MORE 07/06/2024 81911-RHQJESO NAIL, 6 OR MORE 11/05/2024 35628-VXCB SKIN LESIONS, OVER 4 11/06/19 25 54413-JJLA SKIN LESIONS, OVER 4 07/06/20 24 62495-JSZS SKIN LESIONS, OVER 4 02/14/20 23 04470-JFQU SKIN LESIONS, OVER 4 05/09/20 23 Next Appt Details Provider Name:Barbara Woods jimmie, 05/12/2025 09:15:00 AM, [address] [facility], [place], [address], Insurance Providers Payer Name Payer Address Payer Phone Subscriber Number Group Number Insured Name Patient Relationship to Insured Coverage Start Date Coverage End Date [employer] [address] [place] [address] [phone] [id number] Jannette Luther i Self - patient is the insured Medical (General) History Medical History History ICD Code Arthritis Diabetic High blood pressure Measles Chicken pox Psoriasis/eczema Surgical History Surgery Date(Month/Year) tonsillectomy 1967 jaw surgery 1969 appendectomy 1971 carpal tunnel surgery 2004
--- OUTSIDE RECORDS SUMMARY | 2025-03-16 10:00 | XMS_ITS | Clinical Summary ---
Author Organization [facility] Address [address] [place] [address] Care Team Providers Care [employer] Consultant Name Role Phone Unavailable Primary Care Provider [...] 2000 Zoster Vaccines (1 of 2) 2000 Depression Screening 07/08/2024 COVID-19 Vaccine (1 - 2023-2 5 season) 2025 Influenza Vaccine (#1) 2025 RSV Immunization Adult Patie nts (1 - 1-dose 75+ series) 2025 HIB [...] age to complete this topic Meningococcal B Vaccine Aged Out No l onger eligible based on patient's age to complete this topic RSV Immunization Patients Un amish 20 months Aged Out No longer eligible b ased on patient's age to complete this topic Varicella Vaccines Aged Out No longer eligible based on patient's age to complete this topic
[2025-03-16 10:09] LABS: Hemoglobin A1C 217.5073 umol/L; Total Hemoglobin (HGBA1C) 3416.6524 umol/L
[2025-03-16 10:41] LABS: Microalbum/Creatinine Ratio Ur 41.2 ug/mg cr (<30)
[2025-03-16 10:48] LABS: Chloride 106 mmol/L (96-108); Potassium 4.2 mmol/L (3.3-5.1); Sodium 143 mmol/L (135-145)
[2025-03-16 10:49] LABS: Alanine Aminotransferase 23 U/L (0-31); Albumin Level 4.6 g/dL (3.5-5.0); Alkaline Phosphatase 79 U/L (39-117); Anion Gap 15 (12-20); Aspartate Amino Transferase 25 U/L (5-31); Blood Urea Nitrogen 28 mg/dL (9-16); Calcium 9.8 mg/dL (8.4-10.2); Carbon Dioxide 26 mmol/L (22-29); Cholesterol 139 mg/dL (<200); Estimated Glomerular Filt Rate 42; HDL Cholesterol 29 mg/dL (>40); Total Protein 7.5 g/dL (6.5-8.0); Triglycerides 379 mg/dL (<150)
[2025-03-17 12:53] LABS: HCV RNA PCR Qn <1.18 NOT DETECTED Log IU/mL (NOT DETECTED); HCV RNA PCR Qn <15 NOT DETECTED IU/mL (NOT DETECTED)
== END 2025-03-16 08:51 | disposition home or self-care (01) ==
LOC: HO.LAB 08:50
PROVIDERS: PCP Internal Medicine; Visit Provider Internal Medicine
DX: E11.22 Type 2 diabetes mellitus with diabetic chronic kidney disease (principal); I12.9 Hypertensive chronic kidney disease with stage 1 through stage 4 chronic kidney disease, or unspecified chronic kidney disease; N18.9 Chronic kidney disease, unspecified; G43.909 Migraine, unspecified, not intractable, without status migrainosus
CPT/HCPCS: 36415; 80053; 80061; 82043; 82570; 83036; 85025; 87522